=== PATIENT | female | born 1950 | race Caucasian/White ===

== ENCOUNTER 2016-10-13 04:58 | Inpatient (IN) | payer BC, OTHER ==
[2016-10-13] VITALS (10 sets, daily range): BP systolic 105–161; BP diastolic 70–100; PULSE 63–103; TEMP 36.3–37.3; O2SAT 91–100; Ht 170.2 cm; Wt 69.1 kg
[~2016-10-13] VITALS: Ht 170.2 cm; Wt 69.1 kg
[~2016-10-13 04:58] MED LIST: CHLO1TAB15 PO; CLB/200 PO; LAMO100T16 PO; LEVO100T PO; LISI20TA3 PO; METO-217 PO; MONT1TAB3 PO; QUET-206 PO; SERT-234 PO; TOPI50TA16 PO; TRAZ100T29 PO; VALA500T39 PO
--- NOTE | 2016-10-13 05:10 | EMERGENCY ROOM VISIT NOTE ---
History Report prepared by Tina: George Ryan Under the Supervision of: Dr. Robert Garcias M.D. First contact with patient: 05:00 Chief Complaint: WEAKNESS Stated Complaint: WEAKNESS/COLD SYMPTOMS History of Present Illness The patient is a 66 year old female who presents to the Emergency Room with complaints of weakness that began two days ago. At this time, she began experiencing cold symptoms. She has a cough with a fever as well. She is coughing up yellow sputum. The weakness then began. She denies any nausea, vomiting, or recent falls. She has a history of a stroke with left sided weakness. She is not on oxygen at home. Her oxygen saturation was 91% on room air. She denies any history of pneumonia. She tool Tylenol last night. Source of History: patient Onset: two days ago Position: other (global) Symptom Intensity: moderate Quality: other (weakness) Timing: constant Associated Symptoms: + cough, + fevers, No nausea, No vomiting Review of Systems See HPI for pertinent positives & negatives. A total of 10 systems reviewed and were otherwise negative. Past Medical & Surgical Medical Problems: (1) Hypercholesteremia (2) Hypertension Family History Hypertension Social History Smoking Status: Never Smoker Marital Status: Housing Status: lives with significant other Occupation Status: retired Current/Historical Medications Scheduled Celecoxib (CeleBREX), 1 CAP PO QAM Chlorpromazine Hcl (Thorazine), 50 MG PO TID Chlorpromazine Hcl (Thorazine), 75 MG PO TID Lamotrigine (Lamictal), 125 MG PO QAM Levothyroxine Sodium (Synthroid), 1 TAB PO QAM Lisinopril (Prinivil), 1 TAB PO QAM Metoprolol Succinate (Toprol Xl), 50 MG PO HS Montelukast Sodium (Singulair), 1 TAB PO HS Quetiapine Fumarate (Seroquel), 400 MG PO HS Sertraline (Zoloft), 1 TAB PO QAM Topiramate (Topamax), 75 MG PO BID Trazodone Hcl (Trazodone), 100 MG PO QAM Valacyclovir Hcl (Valtrex), 1 TAB PO QAM Allergies Coded Allergies: Clonazepam (Unverified Allergy, Unknown, ., 04/30/15) Erythromycin (Unverified Allergy, Unknown, UNK, 04/30/15) Risperidone (Unverified Allergy, Unknown, UNK, 04/30/15) Physical Exam Vital Signs Date Time Temp Pulse Resp B/P Pulse Ox O2 Delivery O2 Flow Rate FiO2 10/13/16 07:02 106 22 100/66 94 Room Air 10/13/16 06:48 105 20 103/61 96 Nasal Cannula 2.0 10/13/16 05:58 109 10/13/16 05:43 110 22 129/66 93 Nasal Cannula 2.0 10/13/16 05:09 91 Room Air 10/13/16 05:09 37.7 117 24 133/90 91 Room Air 10/13/16 05:05 117 Physical Exam GENERAL: Patient is chronically unwell appearing and in moderate acute distress. HEENT: No acute trauma, normocephalic atraumatic, mucous membranes moist, no nasal congestion, no scleral icterus. NECK: No stridor, no adenopathy, no meningismus, trachea is midline. LUNGS: No dyspnea. Junky productive cough. Crackles and decreased breath sounds bilaterally. HEART: Regular rate and rhythm. No murmurs, rubs, gallops appreciated. ABDOMEN: Soft, nontender, bowel sounds positive, no masses appreciated, no peritonitis. BACK: No midline tenderness, no CVA tenderness EXTREMITIES: Normal motion all extremities, no cyanosis, no edema. NEUROLOGIC: Alert and oriented, no acute motor or sensory deficits, no focal weakness, cranial nerves grossly intact. Decreased use of left arm and leg secondary to stroke. SKIN: No rash, no jaundice, no diaphoresis. Medical Decision & Procedures ER Provider Diagnostic Interpretation: X ray results are stated below per my interpretation and the radiologist's interpretation. CHEST X-RAY 1 VIEW: Hypoinflated lungs. Developing left lower lobe infiltrate with pleural effusion on the left which is new. Per me. Laboratory Results 10/13/16 04:48 Red Blood Count 4.61, Mean Corpuscular Volume 86.1, Mean Corpuscular Hemoglobin 28.6, Mean Corpuscular Hemoglobin Concent 33.2, Mean Platelet Volume 9.7, Neutrophils (%) (Auto) 78.6, Lymphocytes (%) (Auto) 9.4, Monocytes (%) (Auto) 11.5, Eosinophils (%) (Auto) 0.1, Basophils (%) (Auto) 0.2, Neutrophils # (Auto ) 6.74, Lymphocytes # (Auto) 0.81, Monocytes # (Auto) 0.99, Eosinophils # (Auto ) 0.01, Basophils # (Auto) 0.02 10/13/16 04:48 Test 10/13/16 04:48 10/13/16 05:27 10/13/16 05:40 White Blood Count 8.59 K/uL (4.8-10.8) Red Blood Count 4.61 M/uL (4.2-5.4) Hemoglobin 13.2 g/dL (12.0-16.0) Hematocrit 39.7 % (37-47) Mean Corpuscular Volume 86.1 fL (80-100) Mean Corpuscular Hemoglobin 28.6 pg (25-34) Mean Corpuscular Hemoglobin Concent 33.2 g/dl (32-36) Platelet Count 198 K/uL (130-400) Mean Platelet Volume 9.7 fL (7.4-10.4) Neutrophils (%) (Auto) 78.6 % Lymphocytes (%) (Auto) 9.4 % Monocytes (%) (Auto) 11.5 % Eosinophils (%) (Auto) 0.1 % Basophils (%) (Auto) 0.2 % Neutrophils # (Auto) 6.74 K/uL (1.4-6.5) Lymphocytes # (Auto) 0.81 K/uL (1.2-3.4) Monocytes # (Auto) 0.99 K/uL (0.11-0.59) Eosinophils # (Auto) 0.01 K/uL (0-0.5) Basophils # (Auto) 0.02 K/uL (0-0.2) RDW Standard Deviation 47.8 fL (36.4-46.3) RDW Coefficient of Variation 15.2 % (11.5-14.5) Immature Granulocyte % (Auto) 0.2 % Immature Granulocyte # (Auto) 0.02 K/uL (0.00-0.02) Dohle Bodies 1+ Prothrombin Time 10.5 SECONDS (9.0-12.0) Prothromb Time International Ratio 1.0 (0.9-1.1) Anion Gap 6.0 mmol/L (3-11) Est Creatinine Clear Calc Drug Dose 65.6 ml/min Estimated GFR () 87.1 Estimated GFR (Non- 75.2 BUN/Creatinine Ratio 10.9 (10-20) Calcium Level 8.4 mg/dl (8.5-10.1) Magnesium Level 1.8 mg/dl (1.8-2.4) Total Bilirubin 0.6 mg/dl (0.2-1) Direct Bilirubin 0.2 mg/dl (0-0.2) Aspartate Amino Transf (AST/SGOT) 30 U/L (15-37) Alanine Aminotransferase (ALT/SGPT) 52 U/L (12-78) Alkaline Phosphatase 135 U/L (45-117) Total Creatine Kinase 53 U/L (26-192) Creatine Kinase MB 0.7 ng/ml (0.5-3.6) Creatine Kinase MB Ratio 1.3 (0-3.0) Troponin I < 0.015 ng/ml (0-0.045) Total Protein 7.3 gm/dl (6.4-8.2) Albumin 3.1 gm/dl (3.4-5.0) Bedside Lactic Acid Venous 1.06 mmol/L (0.90-1.70) Urine Color YELLOW Urine Appearance CLEAR (CLEAR) Urine pH 6.0 (4.5-7.5) Urine Specific [place] 1.025 (1.000-1.030) Urine Protein 1+ (NEG) Urine Glucose (UA) NEG (NEG) Urine Ketones NEG (NEG) Urine Occult Blood 2+ (NEG) Urine Nitrite NEG (NEG) Urine Bilirubin NEG (NEG) Urine Urobilinogen NEG (NEG) Urine Leukocyte Esterase NEG (NEG) Urine RBC 0-4 /hpf (0-4) Urine WBC 1-5 /hpf (0-5) Urine Epithelial Cells 0-5 /lpf (0-5) Urine Bacteria NEG (NEG) Laboratory results as reviewed by me. Medications Administered Medications (Trade) Dose Ordered Sig/Natali Route Start Time Stop Time Status Last Admin Dose Admin Sodium Chloride (Nss 1000ml) 1,000 ml @ 999 mls/hr Q1H1M STAT IV 10/13/16 05:15 10/13/16 06:15 DC 10/13/16 05:49 999 MLS/HR Acetaminophen (Tylenol Tab) 1,000 mg NOW STAT PO 10/13/16 05:15 10/13/16 05:16 DC 10/13/16 05:49 1,000 MG Levofloxacin (Levaquin / D5W) 750 mg NOW STAT IV 10/13/16 06:25 10/13/16 06:26 DC 10/13/16 06:30 750 MG Dexamethasone Sodium Phosphate (Decadron Inj) 10 mg NOW ONCE IV 10/13/16 06:30 10/13/16 06:31 DC 10/13/16 06:30 10 MG Albuterol/ Ipratropium (Duoneb) 3 ml NOW STAT INH 10/13/16 06:25 10/13/16 06:26 DC 10/13/16 06:30 3 ML ECG Indication: weakness Rate (beats per minute): 116 Rhythm: sinus tachycardia Findings: PVC, no acute ischemic change ED Course 0500: The patient was evaluated in room B7. A complete history and physical exam was performed. 0515: Ordered Tylenol Tab 1000 PO, Sodium Chloride 1000 ml @ 999 mls/hr IV 0625: Ordered DuoNeb 3 ml INH, Levofloxacin 750 mg IV 0626: Upon reevaluation, the patient is resting. Discussed results and treatment plan with the patient. She verbalized understanding and agreement with the treatment plan. The patient will be evaluated by Dr. Ralph MORALES, for further management. 0630: Ordered Decadron Inj 10 mg IV Medical Decision Differential: Infectious, Reactive Airway Disease, Pneumonia, Pneumothorax, COPD , CHF, ACS, Pulmonary Embolism, MSK, GI, Dissection, amongst other etiologies entertained. 66 yr old febrile/hypoxic female with history of left sided paralysis s/p stroke arrives for evaluation of productive cough and fatigue. Unable to ambulate due to weakness and requiring NC O2 to keep oxygenated. CXR with LLL infiltrate and effusion which is new. Levaquin for coverage. She is not septic shock. BP and Lactic acid OK. Labs otherwise looking OK. She is too ill to go home. Will bring in to hospitalist for further evaluation/treatment. Consults Time Called: [phone] Consulting Physician: Dr. Ralph MORALES Returned Call: [phone] He will be evaluating the patient for further management. Impression Primary Impression: Pneumonia Additional Impressions: Hypoxia Generalized weakness Pleural effusion on left Scribe Attestation The scribe's documentation has been prepared under my direction and personally reviewed by me in its entirety. I confirm that the note above accurately reflects all work, treatment, procedures, and medical decision making performed by me. Departure Information Dispostion Being Evaluated By Hospitalist Referrals [facility] (PCP) Patient Instructions My [facility] Health Problem Qualifiers Primary Impression: Pneumonia Pneumonia type: due to unspecified organism Laterality: left Lung location : lower lobe of lung Qualified Codes: J18.1 - Lobar pneumonia, unspecified organism
[2016-10-13] MEDS ORDERED: SODIUM CHLORIDE 0.9% 1000ML 1,000 ML IV STA (05:15)
[2016-10-13] MEDS ORDERED: ACETAMINOPHEN 500 MG TAB PO STA (05:15)
[2016-10-13 05:39] LABS: HEMATOCRIT 39.7 % (37-47); MEAN CELL VOLUME 86.1 fL (80-100); MEAN CORPUSCULAR HEMOGLOBIN 28.6 pg (25-34); MEAN CORPUSCULAR HGB CONC 33.2 g/dl (32-36); MEAN PLATELET VOLUME 9.7 fL (7.4-10.4); PLATELET COUNT 198 K/uL (130-400); RED BLOOD COUNT 4.61 M/uL (4.2-5.4); WHITE BLOOD COUNT 8.59 K/uL (4.8-10.8)
[2016-10-13 05:49] LABS: PROTHROMBIN TIME (PATIENT) 10.5 SECONDS (9.0-12.0)
[2016-10-13 05:55] LABS: ALT/SGPT 52 U/L (12-78); AST/SGOT 30 U/L (15-37); BLOOD UREA NITROGEN 9 mg/dl (7-18); BUN/CREATININE RATIO 10.9 (10-20); CALCIUM 8.4 mg/dl (8.5-10.1); CARBON DIOXIDE 31 mmol/L (21-32); CHLORIDE 101 mmol/L (98-107); CREATININE 0.81 mg/dl (0.60-1.20); GLUCOSE 119 mg/dl (70-99); MAGNESIUM 1.8 mg/dl (1.8-2.4); POTASSIUM 3.8 mmol/L (3.5-5.1); SODIUM 138 mmol/L (136-145)
[2016-10-13 05:59] LABS: BASO % 0.2 %; BASO ABS # 0.02 K/uL (0-0.2); COMPLETE YES; DOHLE BODIES 1+; EOS % 0.1 %; IG% 0.2 %; LYMPH % 9.4 %; LYMPH ABS # 0.81 K/uL (1.2-3.4); MONO % 11.5 %; NEUT % 78.6 %
[2016-10-13 06:01] LABS: ALKALINE PHOSPHATASE 135 U/L (45-117); CKMB/CK RATIO 1.3 (0-3.0)
[2016-10-13 06:04] LABS: MANUAL MICROSCOPIC REQUIRED? YES; URINE APPEARANCE CLEAR (CLEAR); URINE BILIRUBIN NEG (NEG); URINE COLOR YELLOW; URINE NITRITE NEG (NEG); URINE SPECIFIC GRAVITY 1.025 (1.000-1.030); UROBILINOGEN NEG (NEG)
[2016-10-13 06:05] LABS: REVIEW REQ? NO
[2016-10-13] MEDS ORDERED: LEVAQUIN 750MG / 150ML D5W IV STA (06:25)
[2016-10-13] MEDS ORDERED: ALBUT/IPRATROP 3MG/0.5MG NEB 3 ML VIAL INH STA (06:25)
[2016-10-13 06:28] LABS: URINE BACTERIA NEG (NEG); URINE RBC 0-4 /hpf (0-4)
[2016-10-13 06:29] LABS: ZZURINE CULT IF INDIC CATH NO
[2016-10-13] MEDS ORDERED: DEXAMETHASONE SOD INJ 10 MG/ML VIAL IV ONE (06:30)
[2016-10-13] MEDS ORDERED: CLON0.5T3 PO (07:14)
[2016-10-13] MEDS ORDERED: VALA500T60 PO (07:15)
[2016-10-13] MEDS ORDERED: CLOP1TAB15 PO (07:16)
[2016-10-13] MEDS ORDERED: ATOR-22 PO (07:16)
[2016-10-13] MEDS ORDERED: METO25TA3 PO (07:16)
[2016-10-13] MEDS ORDERED: CYM/30 PO (07:18)
[2016-10-13] MEDS ORDERED: DULO60CA44 PO (07:18)
[2016-10-13] MEDS ORDERED: BREX1TAB3 PO (07:19)
[2016-10-13] MEDS ORDERED: RANI150T3 PO (07:19)
[2016-10-13] MEDS ORDERED: QUET200T2 PO (07:19)
[2016-10-13] MEDS ORDERED: TRAZ100T29 PO (07:19)
[2016-10-13] MEDS ORDERED: DOCU100C31 PO (07:20)
[2016-10-13] MEDS ORDERED: LORA-741 PO (07:20)
[2016-10-13] MEDS ORDERED: OXYC1TAB3 PO (07:21)
[2016-10-13] MEDS ORDERED: CYCL5TAB PO (07:21)
--- NOTE | 2016-10-13 07:41 | DIAGNOSTIC IMAGING REPORT ---
SINGLE VIEW CHEST CLINICAL HISTORY: Fever. FINDINGS: An AP, portable, upright chest radiograph is compared to study dated 04/30/2015. The examination is degraded by portable technique and patient rotation. The cardiomediastinal silhouette is unremarkable. There is airspace consolidation at the left lung base with a small left pleural effusion. Mild right perihilar opacities are observed. No pneumothorax is seen. The skeletal structures are osteopenic. The bony thorax is grossly intact. IMPRESSION: 1. There is patchy airspace consolidation at the left lung base with a small left pleural effusion. The appearance is typical for pneumonia. Radiographic follow-up to resolution is recommended. 2. There are right perihilar airspace opacities which also likely represent an infectious/inflammatory pneumonitis. Electronically signed by: Sy Steve M.D. 10/13/2016 7:39 AM Dictated Date/Time: 10/13/2016 7:38 AM
[2016-10-13] MEDS ORDERED: IPRATROPIUM BROMIDE NEB SOLN 0.02% 2.5 ML VIAL INH PRN (08:15)
[2016-10-13] MEDS ORDERED: DOCUSATE SODIUM 100 MG CAP PO PRN (08:15)
[2016-10-13] MEDS ORDERED: ALUMINUM/MAGNESIUM/SIMETH (MAALOX MAX) 30 ML UDC PO PRN (08:15)
[2016-10-13] MEDS ORDERED: ACETAMINOPHEN 325 MG TAB PO PRN (08:15)
[2016-10-13] MEDS ORDERED: CYCLOBENZAPRINE HCL 10 MG TAB PO PRN (08:15)
[2016-10-13] MEDS ORDERED: LEVALBUTEROL 1.25MG/0.5ML NEB INH PRN (08:15)
[2016-10-13] MEDS ORDERED: OXYCODONE HCL IR 5 MG TAB (IMMEDIATE RELEASE) PO PRN (08:15)
[2016-10-13] MEDS ORDERED: ONDANSETRON INJ 2 MG/ML 2 ML VIAL IV PRN (08:15)
[2016-10-13] MEDS ORDERED: POLYETHYLENE (MIRALAX) 17 GM PACK PO PRN (08:15)
--- NOTE | 2016-10-13 08:49 | History and Physical ---
History & Physical Date & Time of Service: October 13, 2016 at 08:38 Chief Complaint: Weakness/Cold Symptoms Primary Care Physician: Penelope Montano D.O. History of Present Illness Source: patient, spouse Ms. Abernathy is a 66 y/o female with PMHx of CVA with L Residual Deficits ( February 2016), HLD, HTN, Chronic PVCs, COPD?, and Bipolar Disorder who presents to the ED c/o generalized weakness and cold-like symptoms x 2 days. She reports her symptoms started as rhinorrhea and a sore throat that have resolved. Reports a productive cough of yellow sputum but is beginning to become less productive at this point. She gradually developed generalized weakness. She normally ambulates with a cane but her reports he has to help her move more over the past couple of days. She does have L residual deficits from her CVA. She reports that she has a baseline essential tremor but feels that it has increased over the passed couple of days. She feels like she was running a fever but did not document any fevers at home. Reports chronic urinary retention causing her to strain to urinate since her CVA. Also notes chronic constipation. She states she thinks she has a H/O COPD but then states she mostly just has allergies. She utilizes Singulair but does not have nebulizers or inhalers at home. She denies CP, SOB, N/V, abdominal pain, dysuria, diarrhea , melena/hematochezia. In the ED, she has a low-grade fever and mild tachycardia. Lactic acid is unremarkable and she is without leukocytosis. CXR reveals patchy airspace consolidation in L lung base and small L pleural effusion. EKG reveals sinus tachycardia with frequent PVCs without ischemic changes. She received IVF, Decadron, and Levaquin. She will be admitted to telemetry for SIRS from community-acquired pneumonia. Past Medical/Surgical History Medical Problems: (1) Hypercholesteremia Status: Chronic (2) Hypertension Status: Chronic Family History Heart Disease MOTHER BROTHER Hypertension Social History Smoking Status: Never Smoker Smokeless Tobacco Use: No Alcohol Use: none Drug Use: none Marital Status: Occupational Status: retired Multi-Drug Resistant Organisms History of MDRO: No Allergies Coded Allergies: Clonazepam (Unverified Allergy, Unknown, ., 04/30/15) Erythromycin (Unverified Allergy, Unknown, UNK, 04/30/15) Risperidone (Unverified Allergy, Unknown, UNK, 04/30/15) Home Medications Scheduled Atorvastatin (Lipitor), 20 MG PO HS Brexpiprazole (Rexulti), 1 MG PO QAM Clonazepam (Klonopin), 0.5 MG PO HS Clopidogrel (Plavix), 75 MG PO QAM Duloxetine HCl (Cymbalta), 30 MG PO HS Duloxetine Hcl (Cymbalta), 60 MG PO QAM Levothyroxine Sodium (Synthroid), 1 TAB PO QAM Metoprolol Succ (Toprol Xl) (Toprol-Xl), 25 MG PO DAILY Montelukast Sodium (Singulair), 1 TAB PO HS Quetiapine Fumarate Xr (Seroquel Xr), 400 MG PO DAILY Ranitidine Hcl (Zantac), 150 MG PO HS Trazodone Hcl (Trazodone), 150 MG PO HS Valacyclovir (Valtrex), 500 MG PO QAM Scheduled PRN Cyclobenzaprine Hcl (Flexeril), 5 MG PO UD PRN for Muscle Spasms Docusate Sodium (Docusate Sodium), 100 MG PO BID PRN for Constipation Lorazepam (Ativan), 0.5 MG PO UD PRN for Anxiety Oxycodone Ir (Roxicodone Ir), 5 MG PO UD PRN for Pain Review of Systems Constitutional: + chills, + fatigue, + fever, + weakness (generalized) Eyes: No worsening of vision ENT: + nasal symptoms (initially - resolved), + sore throat (initially - resolved), No trouble swallowing Respiratory: + cough, + sputum (yellow), No shortness of breath, No wheezing Cardiovascular: No chest pain, No palpitations Abdomen: + constipation (chronic), No GI bleeding, No diarrhea, No nausea, No pain, No vomiting Musculoskeletal: No calf pain, No swelling Genitourinary - Female: + urinary retention (chronic), No dysuria Neurologic: + weakness (L sided residual weakness 2/2 CVA) Psychiatric: + problem reported (H/O Bipolar Disorder) Hematologic / Lymphatic: No abnormal bleeding/bruising, No clotting problems Integumentary: No rash Allergic / Immunologic: + seasonal allergies Physical Exam Vital Signs Date Time Temp Pulse Resp B/P Pulse Ox O2 Delivery O2 Flow Rate FiO2 5/23/17 07:54 101 21 111/69 93 Room Air 2.0 10/13/16 07:02 106 22 100/66 94 Room Air 10/13/16 06:48 105 20 103/61 96 Nasal Cannula 2.0 10/13/16 05:58 109 10/13/16 05:43 110 22 129/66 93 Nasal Cannula 2.0 10/13/16 05:09 91 Room Air 10/13/16 05:09 37.7 117 24 133/90 91 Room Air 10/13/16 05:05 117 General Appearance: WD/WN, no apparent distress, + pertinent finding (flat affect/mask-like face) Head: normocephalic, atraumatic Eyes: sclerae normal ENT: hearing grossly normal Neck: supple, no JVD, trachea midline Respiratory/Chest: no respiratory distress, no accessory muscle use, + pertinent finding (course breath sounds with intermittent exp. wheezing) Cardiovascular: no gallop, no murmur, + tachycardia, + pertinent finding ( heard to appreciate heart tones 2/2 course breath sounds) Abdomen/GI: normal bowel sounds, non tender, soft Extremities/Musculoskelatal: no calf tenderness, no pedal edema Neurologic/Psych: alert, oriented x 3, + pertinent finding (minimal to no strength of LLE to dorsiflexion/plantarflexion; RUE 3-4/5 to hand raw stock machine feeder, flexion/ extension) Skin: normal color, warm/dry Diagnostics Laboratory Results Results Past 24 Hours Test 10/13/16 04:48 10/13/16 05:27 10/13/16 05:40 Range/Units White Blood Count 8.59 4.8-10.8 K/uL Red Blood Count 4.61 4.2-5.4 M/uL Hemoglobin 13.2 12.0-16.0 g/dL Hematocrit 39.7 37-47 % Mean Corpuscular Volume 86.1 80-100 fL Mean Corpuscular Hemoglobin 28.6 25-34 pg Mean Corpuscular Hemoglobin Concent 33.2 32-36 g/dl Platelet Count 198 130-400 K/uL Mean Platelet Volume 9.7 7.4-10.4 fL Neutrophils (%) (Auto) 78.6 % Lymphocytes (%) (Auto) 9.4 % Monocytes (%) (Auto) 11.5 % Eosinophils (%) (Auto) 0.1 % Basophils (%) (Auto) 0.2 % Neutrophils # (Auto) 6.74 1.4-6.5 K/uL Lymphocytes # (Auto) 0.81 1.2-3.4 K/uL Monocytes # (Auto) 0.99 0.11-0.59 K/uL Eosinophils # (Auto) 0.01 0-0.5 K/uL Basophils # (Auto) 0.02 0-0.2 K/uL RDW Standard Deviation 47.8 36.4-46.3 fL RDW Coefficient of Variation 15.2 11.5-14.5 % Immature Granulocyte % (Auto) 0.2 % Immature Granulocyte # (Auto) 0.02 0.00-0.02 K/uL Dohle Bodies 1+ Prothrombin Time 10.5 9.0-12.0 SECONDS Prothromb Time International Ratio 1.0 0.9-1.1 Sodium Level 138 136-145 mmol/L Potassium Level 3.8 3.5-5.1 mmol/L Chloride Level 101 98-107 mmol/L Carbon Dioxide Level 31 21-32 mmol/L Anion Gap 6.0 3-11 mmol/L Blood Urea Nitrogen 9 7-18 mg/dl Creatinine 0.81 0.60-1.20 mg/dl Est Creatinine Clear Calc Drug Dose 65.6 ml/min Estimated GFR () 87.1 Estimated GFR (Non- 75.2 BUN/Creatinine Ratio 10.9 10-20 Random Glucose 119 70-99 mg/dl Calcium Level 8.4 8.5-10.1 mg/dl Magnesium Level 1.8 1.8-2.4 mg/dl Total Bilirubin 0.6 0.2-1 mg/dl Direct Bilirubin 0.2 0-0.2 mg/dl Aspartate Amino Transf (AST/SGOT) 30 15-37 U/L Alanine Aminotransferase (ALT/SGPT) 52 12-78 U/L Alkaline Phosphatase 135 45-117 U/L Total Creatine Kinase 53 26-192 U/L Creatine Kinase MB 0.7 0.5-3.6 ng/ml Creatine Kinase MB Ratio 1.3 0-3.0 Troponin I < 0.015 0-0.045 ng/ml Total Protein 7.3 6.4-8.2 gm/dl Albumin 3.1 3.4-5.0 gm/dl Bedside Lactic Acid Venous 1.06 0.90-1.70 mmol/L Urine Color YELLOW Urine Appearance CLEAR CLEAR Urine pH 6.0 4.5-7.5 Urine Specific [place] 1.025 1.000-1.030 Urine Protein 1+ NEG Urine Glucose (UA) NEG NEG Urine Ketones NEG NEG Urine Occult Blood 2+ NEG Urine Nitrite NEG NEG Urine Bilirubin NEG NEG Urine Urobilinogen NEG NEG Urine Leukocyte Esterase NEG NEG Urine RBC 0-4 0-4 /hpf Urine WBC 1-5 0-5 /hpf Urine Epithelial Cells 0-5 0-5 /lpf Urine Bacteria NEG NEG Microbiology Results 10/13/16 Blood Culture, Received Pending 10/13/16 Blood Culture, Received Pending Diagnostic Radiology SINGLE VIEW CHEST FINDINGS: An AP, portable, upright chest radiograph is compared to study dated 04/30/2015. The examination is degraded by portable technique and patient rotation. The cardiomediastinal silhouette is unremarkable. There is airspace consolidation at the left lung base with a small left pleural effusion. Mild right perihilar opacities are observed. No pneumothorax is seen. The skeletal structures are osteopenic. The bony thorax is grossly intact. IMPRESSION: 1. There is patchy airspace consolidation at the left lung base with a small left pleural effusion. The appearance is typical for pneumonia. Radiographic follow-up to resolution is recommended. 2. There are right perihilar airspace opacities which also likely represent an infectious/inflammatory pneumonitis. EKG Poor data quality, interpretation may be adversely affected Sinus tachycardia with frequent , and consecutive Premature ventricular complexes Abnormal ECG When compared with ECG of 30-APR-2015 14:30, Vent. rate has increased BY 38 BPM Criteria for Septal infarct are no longer Present T wave amplitude has decreased in Inferior leads Nonspecific T wave abnormality, worse in Lateral leads Impression Assessment and Plan Ms. Abernathy is a 66 y/o female with PMHx of CVA with L Residual Deficits ( February 2016), HLD, HTN, Chronic PVCs, COPD?, and Bipolar Disorder who presents to the ED c/o generalized weakness and cold-like symptoms x 2 days. CXR reveals patchy airspace consolidation of L lung base and small pleural effusion SIRS from Community Acquired Pneumonia: - Levaquin 750 mg IV daily - Gentle hydration with NSS at 80 mL/hr - Xopenex and Atrovent nebs JANY and PRN - Prednisone 40 mg BID H/O Frequent PVCs: - Metoprolol 25 mg daily COPD/Allergies: - Patient reports COPD but then stated its mostly allergies - Singulair 10 mg daily H/O CVA with L Residual Deficits: - Per patient and she has not taken for Lipitor x "months" -- Initially on 80 mg daily but reduced to 20 mg due to myalgias and has since stopped taking it - Plavix 75 mg daily - Flexeril 5 mg daily PRN and Oxycodone 5 mg Q6H PRN Hypothyroidism: - Synthroid 100 mcg daily Bipolar Disorder: - Cymbalta 60 mg daily and 30 mg HS - Seroquel XR 400 mg daily - Clonazepam 0.5 mg HS - on allergy list however patient and confirm daily use - Trazadone 150 mg HS Constipation: - Colace 100 mg BID PRN DVT Prophylaxis: Lovenox 40 mg SC daily Code Status: FULL RESUSCITATION Disposition: - Monitor on telemetry throughout the day due to frequent PVCs - if stable can go to Med floor tomorrow - PT/OT evaluations - lives at home with and utilizes a cane; no recent falls; only has approx 3 steps to enter home Level of Care Telemetry Resuscitation Status FULL RESUSCITATION VTE Prophylaxis VTE Risk Assessment Done? Y/N: Yes Risk Level: Moderate Given or contraindicated: Enoxaparin (Lovenox)SQ, T.E.D. Stockings, SCD's
[2016-10-13] MEDS: SODIUM CHLORIDE 0.9% 1000ML 1,000 ML IV SCH ×2 (10:53→22:38)
[2016-10-13] MEDS: IPRATROPIUM BROMIDE NEB SOLN 0.02% 2.5 ML VIAL INH SCH ×2 (14:21→19:14)
[2016-10-13] MEDS: LEVALBUTEROL 1.25MG/0.5ML NEB INH SCH ×2 (14:21→19:14)
[2016-10-13] MEDS: ENOXAPARIN 40 MG/0.4 ML SYR SC SCH (16:45)
[2016-10-13] MEDS: GUAIFENESIN SUGAR FREE 100 MG/5 ML UDC PO SCH ×2 (18:03→23:34)
[2016-10-13] MEDS: DULOXETINE (CYMBALTA) 30 MG CAP PO SCH (20:14)
[2016-10-13] MEDS: TRAZODONE HCL 100 MG TAB PO SCH (20:14)
[2016-10-13] MEDS: RANITIDINE HCL 150 MG TAB PO SCH (20:15)
[2016-10-13] MEDS: MONTELUKAST SOD 10 MG TAB PO SCH (20:15)
[2016-10-13] MEDS: CLONAZEPAM 0.5 MG TAB PO SCH (20:45)
[2016-10-13] MEDS ORDERED: ATORVASTATIN 20 MG TAB PO SCH (21:00)
[2016-10-14] VITALS (12 sets, daily range): BP systolic 140–158; BP diastolic 82–96; PULSE 87–120; TEMP 36.3–37.1; O2SAT 90–97
[2016-10-14] MEDS: IPRATROPIUM BROMIDE NEB SOLN 0.02% 2.5 ML VIAL INH SCH ×4 (02:23→19:50)
[2016-10-14] MEDS: LEVALBUTEROL 1.25MG/0.5ML NEB INH SCH ×4 (02:23→19:50)
[2016-10-14 05:46] LABS: HEMATOCRIT 36.3 % (37-47); MEAN CELL VOLUME 85.4 fL (80-100); MEAN CORPUSCULAR HEMOGLOBIN 27.8 pg (25-34); MEAN CORPUSCULAR HGB CONC 32.5 g/dl (32-36); MEAN PLATELET VOLUME 9.2 fL (7.4-10.4); PLATELET COUNT 185 K/uL (130-400); RED BLOOD COUNT 4.25 M/uL (4.2-5.4)
[2016-10-14] MEDS: LEVOTHYROXINE 100 MCG TAB PO SCH (06:12)
[2016-10-14] MEDS: GUAIFENESIN SUGAR FREE 100 MG/5 ML UDC PO SCH ×4 (06:12→23:56)
[2016-10-14 06:21] LABS: BUN/CREATININE RATIO 15.5 (10-20); CALCIUM 8.3 mg/dl (8.5-10.1); CREATININE 0.66 mg/dl (0.60-1.20); MAGNESIUM 2.1 mg/dl (1.8-2.4); POTASSIUM 3.7 mmol/L (3.5-5.1)
[2016-10-14] MEDS ORDERED: LEVOFLOXACIN / D5W 750 MG in PREMIXED IN D5W 150 ML IV SCH (08:00)
[2016-10-14] MEDS: QUETIAPINE FUMARATE 200 MG TABCR PO SCH (08:55)
[2016-10-14] MEDS: CLOPIDOGREL BISULFATE 75 MG TAB PO SCH (08:55)
[2016-10-14] MEDS: DULOXETINE HCL 60 MG CAP PO SCH (08:55)
[2016-10-14] MEDS: METOPROLOL SUCC 25MG EXT REL TAB PO SCH (08:56)
--- NOTE | 2016-10-14 09:47 | Hospitalist Progress Note ---
Hospitalist Progress Note Date of Service October 14, 2016. Subjective Pt evaluation today including: conversation w/ patient, physical exam, chart review, lab review, review of inpatient medication list Patient seen and evaluated. No acute events overnight. Better rate control but continues to have frequent PVCs. Patient appears more energetic today compared to admission and strength improved. Continues to have a weak cough with difficulty moving secretions. Does feel that the cough is improving. Continues to have a poor appetite but feels she is eating a bit more. Constitutional: + fatigue, + weakness (generalized - improving), No chills, No fever Eyes: No worsening of vision ENT: No sore throat, No trouble swallowing Respiratory: + cough, + sputum, No shortness of breath Cardiovascular: No chest pain, No palpitations Abdomen: No GI bleeding, No constipation, No diarrhea, No nausea, No pain, No vomiting Musculoskeletal: No calf pain, No swelling Female : No dysuria Neurologic: + weakness (L sided (nearing baseline)) Skin: No rash Medications Current Inpatient Medications Medications (Trade) Dose Ordered Sig/Natali Route Start Time Stop Time Status Last Admin Dose Admin Enoxaparin Sodium 40 mg 40 mg Q24H SC 10/13/16 16:00 11/12/16 15:59 10/13/16 16:45 40 MG Sodium Chloride (Nss 1000ml) 1,000 ml @ 80 mls/hr [id number] IV 10/13/16 10:00 11/12/16 09:59 10/13/16 22:38 80 MLS/HR Acetaminophen (Tylenol Tab) 650 mg Q4H PRN PO 10/13/16 08:15 11/12/16 08:14 Al Hydrox/Mg Hydrox/Simethicone (Maalox Max Susp) 15 ml Q4H PRN PO 10/13/16 08:15 11/12/16 08:14 Magnesium Hydroxide (Milk Of Magnesia Susp) 30 ml Q12H PRN PO 10/13/16 08:15 11/12/16 08:14 Ondansetron HCl (Zofran Inj) 4 mg Q6H PRN IV 10/13/16 08:15 11/12/16 08:14 Polyethylene 17 gm 17 gm DAILY PRN PO 10/13/16 08:15 11/12/16 08:14 Levofloxacin/Prmx (Levaquin / D5W/ Premixed D5W) 150 ml @ 100 mls/hr DAILY@0800 IV 10/14/16 08:00 10/21/16 07:59 10/14/16 08:56 100 MLS/HR Clopidogrel Bisulfate (plAVix TAB) 75 mg QAM PO 10/14/16 09:00 11/13/16 08:59 10/14/16 08:55 75 MG Cyclobenzaprine HCl (Flexeril Tab) 5 mg DAILY PRN PO 10/13/16 08:15 11/12/16 08:14 Docusate Sodium (coLACE CAP) 100 mg BID PRN PO 10/13/16 08:15 11/12/16 08:14 Duloxetine HCl (Cymbalta Cap) 30 mg HS PO 10/13/16 21:00 11/12/16 20:59 10/13/16 20:14 30 MG Duloxetine HCl (Cymbalta Cap) 60 mg QAM PO 10/14/16 09:00 11/13/16 08:59 10/14/16 08:55 60 MG Levothyroxine Sodium (Synthroid Tab) 100 mcg DAILYBB PO 10/14/16 06:30 11/13/16 06:29 10/14/16 06:12 100 MCG Metoprolol Succinate (Toprol Xl Tab) 25 mg DAILY PO 10/14/16 09:00 11/13/16 08:59 10/14/16 08:56 25 MG Montelukast Sodium (Singulair Tab) 10 mg HS PO 10/13/16 21:00 11/12/16 20:59 10/13/16 20:15 10 MG Oxycodone HCl (Roxicodone Immediate Rel Tab) 5 mg Q6H PRN PO 10/13/16 08:15 10/27/16 08:14 Quetiapine Fumarate (seroQUEL XR TAB) 400 mg DAILY PO 10/14/16 09:00 11/13/16 08:59 10/14/16 08:55 400 MG Ranitidine HCl (zANTac TAB) 150 mg HS PO 10/13/16 21:00 11/12/16 20:59 10/13/16 20:15 150 MG Trazodone HCl (Desyrel Tab) 150 mg HS PO 10/13/16 21:00 11/12/16 20:59 10/13/16 20:14 150 MG Valacyclovir HCl (Valtrex Tab) 500 mg QAM PO 10/14/16 09:00 10/24/16 08:59 10/14/16 08:55 500 MG Miscellaneous Information (Order Awaiting Action) 1 ea QS N/A 10/13/16 16:00 11/12/16 15:59 Ipratropium [place] (Atrovent 0.02% 0.5MG/2.5ML Neb) 0.5 mg Q6R INH 10/13/16 15:00 11/12/16 14:59 10/14/16 07:18 0.5 MG Levalbuterol (Xopenex 1.25MG/ 0.5ML Neb) 1.25 mg Q6R INH 10/13/16 15:00 11/12/16 14:59 10/14/16 07:18 1.25 MG Levalbuterol (Xopenex 1.25MG/ 0.5ML Neb) 1.25 mg Q2H PRN INH 10/13/16 08:15 11/12/16 08:14 Ipratropium [place] (Atrovent 0.02% 0.5MG/2.5ML Neb) 0.5 mg Q2H PRN INH 10/13/16 08:15 11/12/16 08:14 Prednisone (PredniSONE TAB) 40 mg BID PO 10/13/16 21:00 11/12/16 20:59 10/14/16 08:55 40 MG Guaifenesin (Robitussin Sugar Free Syrup) 100 mg Q6H PO 10/13/16 18:00 11/12/16 17:59 10/14/16 06:12 100 MG Clonazepam (Klonopin Tab) 0.5 mg HS PO 10/13/16 21:00 11/12/16 20:59 10/13/16 20:45 0.5 MG Objective Vital Signs Date Time Temp Pulse Resp B/P Pulse Ox O2 Delivery O2 Flow Rate FiO2 10/14/16 08:50 36.8 120 16 145/89 90 Room Air 10/14/16 07:24 36.3 93 16 140/87 97 Room Air 10/14/16 07:18 97 16 93 Room Air 10/14/16 04:00 Room Air 10/14/16 03:52 36.8 93 20 152/82 92 Room Air 10/14/16 02:23 87 16 95 Room Air 10/14/16 00:00 Room Air 10/13/16 23:52 37.0 63 18 161/100 100 Room Air 10/13/16 20:00 Room Air 10/13/16 20:00 92 Room Air 10/13/16 19:44 36.3 103 20 150/92 94 Room Air 10/13/16 19:14 89 16 95 Room Air 10/13/16 16:00 Room Air 10/13/16 15:08 36.5 98 16 123/77 92 Room Air 10/13/16 14:21 94 16 93 Room Air 10/13/16 12:00 Room Air 2.0 10/13/16 11:36 37.3 73 16 105/70 92 Room Air 10/13/16 10:03 91 Room Air 2.0 10/13/16 10:02 36.9 101 16 138/83 91 Room Air Physical Exam General Appearance: WD/WN, no apparent distress, + pertinent finding (flat affect/mask-like face (more expression today)) Eyes: sclerae normal ENT: hearing grossly normal, + pertinent finding (mucous membranes appear less dried today) Neck: supple, no JVD, trachea midline Respiratory/Chest: no respiratory distress, no accessory muscle use, + rhonchi (throughout/course) Cardiovascular: regular rate, rhythm, no gallop, no murmur Abdomen: normal bowel sounds, non tender, soft Extremities: no pedal edema, no calf tenderness Neurologic/Psychiatric: alert Skin: normal color, warm/dry Laboratory Results Last 24 Hours Test 10/14/16 05:36 White Blood Count 9.50 K/uL Red Blood Count 4.25 M/uL Hemoglobin 11.8 g/dL Hematocrit 36.3 % Mean Corpuscular Volume 85.4 fL Mean Corpuscular Hemoglobin 27.8 pg Mean Corpuscular Hemoglobin Concent 32.5 g/dl RDW Standard Deviation 47.2 fL RDW Coefficient of Variation 15.1 % Platelet Count 185 K/uL Mean Platelet Volume 9.2 fL Sodium Level 143 mmol/L Potassium Level 3.7 mmol/L Chloride Level 110 mmol/L Carbon Dioxide Level 26 mmol/L Anion Gap 7.0 mmol/L Blood Urea Nitrogen 10 mg/dl Creatinine 0.66 mg/dl Est Creatinine Clear Calc Drug Dose 80.5 ml/min Estimated GFR () 105.9 Estimated GFR (Non- 91.4 BUN/Creatinine Ratio 15.5 Random Glucose 125 mg/dl Calcium Level 8.3 mg/dl Magnesium Level 2.1 mg/dl Assessment and Plan Ms. Abernathy is a 66 y/o female with PMHx of CVA with L Residual Deficits ( February 2016), HLD, HTN, Chronic PVCs, COPD?, and Bipolar Disorder who presents to the ED c/o generalized weakness and cold-like symptoms x 2 days. CXR reveals patchy airspace consolidation of L lung base and small pleural effusion SIRS from Community Acquired Pneumonia: MILD IMPROVEMENT - Levaquin 750 mg IV daily - Gentle hydration with NSS at 80 mL/hr - Xopenex and Atrovent nebs NATALI and PRN - Guaifenesin 100 mg Q6H - Prednisone 40 mg po BID H/O Frequent PVCs: - Metoprolol 25 mg daily COPD/Allergies: - Patient reports COPD but then stated its mostly allergies - Singulair 10 mg daily H/O CVA with L Residual Deficits: - Per patient and she has not taken Lipitor x "months" -- Initially on 80 mg daily but reduced to 20 mg due to myalgias and has since stopped taking it - Plavix 75 mg daily - Flexeril 5 mg daily PRN and Oxycodone 5 mg Q6H PRN Hypothyroidism: - Synthroid 100 mcg daily Bipolar Disorder: - Cymbalta 60 mg daily and 30 mg HS - Seroquel XR 400 mg daily - Clonazepam 0.5 mg HS - on allergy list however patient and confirm daily use - Trazadone 150 mg HS Constipation: - Colace 100 mg BID PRN DVT Prophylaxis: Lovenox 40 mg SC daily Code Status: FULL RESUSCITATION Disposition: - Monitor on telemetry throughout the day due to frequent PVCs - does have better rate control but intermittently does have tachycardia - will monitor - PT/OT evaluations - lives at home with and utilizes a cane; no recent falls; only has approx 3 steps to enter home
[2016-10-14] MEDS: SODIUM CHLORIDE 0.9% 1000ML 1,000 ML IV SCH (13:54)
[2016-10-14] MEDS: ENOXAPARIN 40 MG/0.4 ML SYR SC SCH (15:52)
[2016-10-14] MEDS: DULOXETINE (CYMBALTA) 30 MG CAP PO SCH (20:48)
[2016-10-14] MEDS: RANITIDINE HCL 150 MG TAB PO SCH (20:49)
[2016-10-14] MEDS: CLONAZEPAM 0.5 MG TAB PO SCH (20:49)
[2016-10-14] MEDS: MONTELUKAST SOD 10 MG TAB PO SCH (20:49)
[2016-10-14] MEDS: TRAZODONE HCL 100 MG TAB PO SCH (20:50)
[2016-10-15] VITALS (11 sets, daily range): BP systolic 122–163; BP diastolic 71–90; PULSE 58–110; TEMP 36.2–36.9; O2SAT 92–97
[2016-10-15] MEDS: IPRATROPIUM BROMIDE NEB SOLN 0.02% 2.5 ML VIAL INH SCH ×4 (02:24→19:04)
[2016-10-15] MEDS: LEVALBUTEROL 1.25MG/0.5ML NEB INH SCH ×4 (02:25→19:04)
[2016-10-15] MEDS: LEVOTHYROXINE 100 MCG TAB PO SCH (05:50)
[2016-10-15] MEDS: GUAIFENESIN SUGAR FREE 100 MG/5 ML UDC PO SCH ×4 (05:50→23:42)
[2016-10-15 06:39] LABS: HEMATOCRIT 39.4 % (37-47); MEAN CELL VOLUME 86.4 fL (80-100); MEAN CORPUSCULAR HEMOGLOBIN 28.3 pg (25-34); MEAN CORPUSCULAR HGB CONC 32.7 g/dl (32-36); MEAN PLATELET VOLUME 10.1 fL (7.4-10.4); PLATELET COUNT 226 K/uL (130-400); RED BLOOD COUNT 4.56 M/uL (4.2-5.4); WHITE BLOOD COUNT 8.46 K/uL (4.8-10.8)
[2016-10-15 07:19] LABS: BUN/CREATININE RATIO 17.5 (10-20); CALCIUM 8.6 mg/dl (8.5-10.1); CREATININE 0.62 mg/dl (0.60-1.20); MAGNESIUM 2.3 mg/dl (1.8-2.4); POTASSIUM 3.9 mmol/L (3.5-5.1)
--- NOTE | 2016-10-15 09:23 | DIAGNOSTIC IMAGING REPORT ---
TWO VIEW CHEST CLINICAL HISTORY: Follow-up pneumonia. FINDINGS: PA and lateral chest radiographs are compared to study dated 10/13/2016. The PA view is degraded by patient rotation. The cardiomediastinal silhouette is unremarkable. Chronic interstitial thickening is unchanged. There is unchanged appearance of left basilar airspace consolidation with a trace left pleural effusion. The right lung appears clear. There is no pneumothorax. The skeletal structures are osteopenic. The bony thorax appears intact. IMPRESSION: Findings of left lower lobe pneumonia with a small left pleural effusion have not significantly changed from 10/13/2016. Electronically signed by: Sy Steve M.D. 10/15/2016 9:21 AM Dictated Date/Time: 10/15/2016 9:11 AM
[2016-10-15] MEDS: DULOXETINE HCL 60 MG CAP PO SCH (09:49)
[2016-10-15] MEDS: METOPROLOL SUCC 25MG EXT REL TAB PO SCH (09:50)
[2016-10-15] MEDS: QUETIAPINE FUMARATE 200 MG TABCR PO SCH (09:50)
[2016-10-15] MEDS: CLOPIDOGREL BISULFATE 75 MG TAB PO SCH (09:50)
[2016-10-15] MEDS ORDERED: LISINOPRIL 5 MG TAB PO ONE (10:45)
[2016-10-15] MEDS: LEVOFLOXACIN 750 MG TAB PO SCH (12:32)
--- NOTE | 2016-10-15 12:37 | Progress Note ---
Subjective Date of Service: October 15, 2016. Subjective Pt evaluation today including: conversation w/ patient, physical exam, chart review, lab review, review of studies, conversation w/ nutrition consultant, review of inpatient medication list Sitting up in chair, continue doing well, was doing physical setup Still has some cough with sputum difficult breathing Problem List Medical Problems: (1) Generalized weakness Status: Acute (2) Hypoxia Status: Acute (3) Pleural effusion on left Status: Acute (4) Pneumonia Status: Acute Review of Systems Constitutional: + fatigue, + weakness, No chills, No fever, No problem reported , No sweats, No weight loss Eyes: No diplopia, No discharge, No eye pain, No redness, No worsening of vision ENT: No dental problems, No hearing loss, No nasal symptoms, No sore throat, No tinnitus, No trouble swallowing, No unusual epistaxis Respiratory: + cough, + see HPI, + sputum, No dyspnea at rest, No dyspnea on exertion, No hemoptysis, No shortness of breath, No wheezing Cardiac: No PND, No chest pain, No claudication, No edema, No orthopnea, No palpitations Abdomen: No constipation, No diarrhea, No nausea, No pain, No vomiting Musculoskeletal: No calf pain, No joint pain, No muscle pain, No swelling Female : No abnormal vaginal bleeding, No dysuria, No hematuria, No incontinence, No urinary frequency, No vaginal discharge Neurologic: + weakness (left-sided weakness is not new), No balance problems, No memory loss, No numbness/tingling, No paralysis, No vertigo Psychiatric: No anhedonism, No anxiety, No depression symptoms, No insomnia, No substance abuse Heme: No abnormal bleeding/bruising, No clotting problems, No night sweats, No swollen lymph nodes Endo: No excessive thirst, No excessive urination, No fatigue Skin: No bleeding, No color change, No itch, No new/changing skin lesions, No rash Objective Vital Signs Date Time Temp Pulse Resp B/P Pulse Ox O2 Delivery O2 Flow Rate FiO2 10/15/16 11:25 36.2 80 16 150/82 93 Room Air 10/15/16 08:00 97 Room Air 2.0 10/15/16 07:57 36.5 58 16 157/86 97 Room Air 10/15/16 07:00 77 16 92 Room Air 10/15/16 04:31 36.5 65 18 159/88 97 Room Air 10/15/16 04:00 Room Air 10/15/16 00:00 Room Air 10/14/16 23:21 37.1 89 18 158/93 94 Room Air 10/14/16 20:00 Room Air 10/14/16 19:50 37.1 103 18 145/96 91 Room Air 10/14/16 19:50 88 16 94 Room Air 10/14/16 16:27 37.0 108 18 154/88 93 10/14/16 16:00 Room Air 10/14/16 14:19 87 16 94 Room Air Physical Exam General Appearance: WD/WN, no apparent distress Eyes: normal inspection, PERRL, EOMI, sclerae normal ENT: normal ENT inspection, hearing grossly normal, pharynx normal Neck: supple, no adenopathy, thyroid normal, no JVD, no carotid bruits, trachea midline Respiratory/Chest: chest non-tender, no respiratory distress, no accessory muscle use, + decreased breath sounds Cardiovascular: regular rate, rhythm, no edema, no gallop, no JVD, no murmur Abdomen: normal bowel sounds, non tender, soft, no organomegaly, no pulsatile mass Extremities: normal range of motion, non-tender, normal inspection, no pedal edema, no calf tenderness, normal capillary refill, pelvis stable Neurologic/Psychiatric: raw silk grader II-XII nml as tested, no motor/sensory deficits, alert, normal mood/affect, oriented x 3, + motor weakness (in left lower and upper extremity, which is not new) Skin: normal color, warm/dry, no rash Lymphatic: no adenopathy Laboratory Results Last 24 Hours Test 10/15/16 05:58 White Blood Count 8.46 K/uL Red Blood Count 4.56 M/uL Hemoglobin 12.9 g/dL Hematocrit 39.4 % Mean Corpuscular Volume 86.4 fL Mean Corpuscular Hemoglobin 28.3 pg Mean Corpuscular Hemoglobin Concent 32.7 g/dl RDW Standard Deviation 49.3 fL RDW Coefficient of Variation 15.4 % Platelet Count 226 K/uL Mean Platelet Volume 10.1 fL Sodium Level 144 mmol/L Potassium Level 3.9 mmol/L Chloride Level 109 mmol/L Carbon Dioxide Level 26 mmol/L Anion Gap 9.0 mmol/L Blood Urea Nitrogen 11 mg/dl Creatinine 0.62 mg/dl Est Creatinine Clear Calc Drug Dose 85.6 ml/min Estimated GFR () 108.1 Estimated GFR (Non- 93.3 BUN/Creatinine Ratio 17.5 Random Glucose 122 mg/dl Calcium Level 8.6 mg/dl Magnesium Level 2.3 mg/dl Assessment and Plan 66 y/o female admitted because of pneumonia on 10/13/2016 with c/o generalized weakness and cold-like symptoms x 2 days. CXR reveals patchy airspace consolidation of L lung base and small pleural effusion SIRS from Community Acquired Pneumonia: MILD IMPROVEMENT - Has been on Levaquin 750 mg IV daily, will change to by mouth - Xopenex and Atrovent nebs JANY and PRN - Guaifenesin 100 mg Q6H - Prednisone 40 mg po BID, start tapering PMHx of CVA with L Residual Deficits (February 2016), HLD, HTN, Chronic PVCs, COPD?, and Bipolar Disorder: Stable continue current medication Disposition: - PT/OT evaluations - lives at home with and utilizes a cane; no recent falls; only has approx 3 steps to enter home, PT OT possible okay for patient to go home - However patient shows requested possible need of placement, I called to , no answer, will have CM to continue follow up - database administration manager on the case Discharge planning: home with home health
[2016-10-15] MEDS: ENOXAPARIN 40 MG/0.4 ML SYR SC SCH (17:00)
[2016-10-15] MEDS: DULOXETINE (CYMBALTA) 30 MG CAP PO SCH (20:37)
[2016-10-15] MEDS: TRAZODONE HCL 100 MG TAB PO SCH (20:38)
[2016-10-15] MEDS: CLONAZEPAM 0.5 MG TAB PO SCH (20:38)
[2016-10-15] MEDS: MONTELUKAST SOD 10 MG TAB PO SCH (20:39)
[2016-10-15] MEDS: RANITIDINE HCL 150 MG TAB PO SCH (20:39)
[2016-10-16] VITALS (8 sets, daily range): BP systolic 127–158; BP diastolic 92–96; PULSE 78–112; TEMP 36.5–37.1; O2SAT 90–93
[2016-10-16] MEDS: IPRATROPIUM BROMIDE NEB SOLN 0.02% 2.5 ML VIAL INH SCH ×4 (02:22→19:25)
[2016-10-16] MEDS: LEVALBUTEROL 1.25MG/0.5ML NEB INH SCH ×4 (02:22→19:25)
[2016-10-16 05:42] LABS: HEMATOCRIT 38.6 % (37-47); MEAN CELL VOLUME 85.8 fL (80-100); MEAN CORPUSCULAR HGB CONC 32.6 g/dl (32-36); MEAN PLATELET VOLUME 9.5 fL (7.4-10.4); PLATELET COUNT 237 K/uL (130-400)
[2016-10-16] MEDS: GUAIFENESIN SUGAR FREE 100 MG/5 ML UDC PO SCH ×3 (05:57→18:00)
[2016-10-16] MEDS: LEVOTHYROXINE 100 MCG TAB PO SCH (05:58)
[2016-10-16 06:06] LABS: BUN/CREATININE RATIO 19.6 (10-20); CALCIUM 8.4 mg/dl (8.5-10.1); CREATININE 0.69 mg/dl (0.60-1.20); POTASSIUM 3.9 mmol/L (3.5-5.1)
[2016-10-16] MEDS: QUETIAPINE FUMARATE 200 MG TABCR PO SCH (07:52)
[2016-10-16] MEDS: LISINOPRIL 5 MG TAB PO SCH (07:53)
[2016-10-16] MEDS: DULOXETINE HCL 60 MG CAP PO SCH (07:53)
[2016-10-16] MEDS: CLOPIDOGREL BISULFATE 75 MG TAB PO SCH (07:53)
[2016-10-16] MEDS: METOPROLOL SUCC 25MG EXT REL TAB PO SCH (07:53)
[2016-10-16] MEDS: LEVOFLOXACIN 750 MG TAB PO SCH (11:13)
--- NOTE | 2016-10-16 12:01 | Progress Note ---
Subjective Date of Service: October 16, 2016. Subjective Pt evaluation today including: conversation w/ patient, physical exam, chart review, lab review, review of studies, review of inpatient medication list Continued doing okay, up to chair, still some cough and sputum, no difficulty breathing Problem List Medical Problems: (1) Generalized weakness Status: Acute (2) Hypoxia Status: Acute (3) Pleural effusion on left Status: Acute (4) Pneumonia Status: Acute Review of Systems Constitutional: + fatigue, + weakness, No chills, No fever, No problem reported , No sweats, No weight loss Eyes: No diplopia, No discharge, No eye pain, No redness, No worsening of vision ENT: No dental problems, No hearing loss, No nasal symptoms, No sore throat, No tinnitus, No trouble swallowing, No unusual epistaxis Respiratory: + cough, + sputum, No dyspnea at rest, No dyspnea on exertion, No hemoptysis, No shortness of breath, No wheezing Cardiac: No PND, No chest pain, No claudication, No edema, No orthopnea, No palpitations Abdomen: No constipation, No diarrhea, No nausea, No pain, No vomiting Musculoskeletal: No calf pain, No joint pain, No muscle pain, No swelling Female : No abnormal vaginal bleeding, No dysuria, No hematuria, No incontinence, No urinary frequency, No vaginal discharge Neurologic: + weakness (left-sided weakness is not new), No balance problems, No memory loss, No numbness/tingling, No paralysis, No vertigo Psychiatric: No anhedonism, No anxiety, No depression symptoms, No insomnia, No substance abuse Heme: No abnormal bleeding/bruising, No clotting problems, No night sweats, No swollen lymph nodes Endo: No excessive thirst, No excessive urination, No fatigue Skin: No bleeding, No color change, No itch, No new/changing skin lesions, No rash Objective Vital Signs Date Time Temp Pulse Resp B/P Pulse Ox O2 Delivery O2 Flow Rate FiO2 10/16/16 11:15 37.1 101 20 149/96 90 Room Air 10/16/16 08:00 Room Air 10/16/16 08:00 92 Room Air 10/16/16 07:34 78 16 92 Room Air 10/16/16 07:24 36.9 87 18 152/92 92 Room Air 10/16/16 04:54 36.9 81 18 151/94 93 Room Air 10/16/16 04:00 Room Air 10/16/16 00:00 Room Air 10/15/16 23:26 36.8 110 20 163/84 93 Room Air 10/15/16 20:00 93 Room Air 10/15/16 19:48 36.8 86 18 143/90 93 Room Air 10/15/16 19:04 78 16 92 Room Air 10/15/16 16:00 93 Room Air 10/15/16 15:53 36.9 93 18 122/71 93 Room Air Physical Exam General Appearance: WD/WN, no apparent distress, + thin, + pertinent finding ( looks good) Eyes: normal inspection, PERRL, EOMI, sclerae normal ENT: normal ENT inspection, hearing grossly normal, pharynx normal Neck: supple, no adenopathy, thyroid normal, no JVD, no carotid bruits, trachea midline Respiratory/Chest: chest non-tender, normal breath sounds, no respiratory distress, no accessory muscle use, + decreased breath sounds, + rales Cardiovascular: regular rate, rhythm, no edema, no gallop, no JVD, no murmur Abdomen: normal bowel sounds, non tender, soft, no organomegaly, no pulsatile mass Extremities: normal range of motion, non-tender, normal inspection, no pedal edema, no calf tenderness, normal capillary refill, pelvis stable Neurologic/Psychiatric: communication equipment repairer II-XII nml as tested, alert, normal mood/affect, oriented x 3, + pertinent finding (left-sided weakness is not new) Skin: normal color, warm/dry, no rash Lymphatic: no adenopathy Laboratory Results Last 24 Hours Test 10/16/16 05:15 White Blood Count 7.00 K/uL Red Blood Count 4.50 M/uL Hemoglobin 12.6 g/dL Hematocrit 38.6 % Mean Corpuscular Volume 85.8 fL Mean Corpuscular Hemoglobin 28.0 pg Mean Corpuscular Hemoglobin Concent 32.6 g/dl RDW Standard Deviation 48.6 fL RDW Coefficient of Variation 15.2 % Platelet Count 237 K/uL Mean Platelet Volume 9.5 fL Sodium Level 142 mmol/L Potassium Level 3.9 mmol/L Chloride Level 107 mmol/L Carbon Dioxide Level 28 mmol/L Anion Gap 7.0 mmol/L Blood Urea Nitrogen 14 mg/dl Creatinine 0.69 mg/dl Est Creatinine Clear Calc Drug Dose 77.0 ml/min Estimated GFR () 104.4 Estimated GFR (Non- 90.1 BUN/Creatinine Ratio 19.6 Random Glucose 115 mg/dl Calcium Level 8.4 mg/dl Assessment and Plan 66 y/o female admitted because of pneumonia on 10/13/2016 with c/o generalized weakness and cold-like symptoms x 2 days. CXR reveals patchy airspace consolidation of L lung base and small pleural effusion SIRS from Community Acquired Pneumonia: MILD IMPROVEMENT Blood culture negative Community Acquired Pneumonia: Stable and improving - Has been on Levaquin 750 mg IV daily, was changed to by mouth - Xopenex and Atrovent nebs JANY and PRN - Guaifenesin 100 mg Q6H - Prednisone 40 mg po BID, start tapering with 20 mg by mouth twice a day PMHx of CVA with L Residual Deficits (February 2016), HLD, HTN, Chronic PVCs, COPD?, and Bipolar Disorder: Stable continue current medication Disposition: - PT/OT evaluations - lives at home with and utilizes a cane; no recent falls; only has approx 3 steps to enter home, - However patient shows requested possible need of placement, I called to , no answer, ancillary services manager therapy has referral to custodial - ancillary services manager therapy on the case - Patient possible ready to be discharged when custodial Continued [facility] stay due to: home environment unsafe for pt Discharge planning: home with home health
[2016-10-16] MEDS: ENOXAPARIN 40 MG/0.4 ML SYR SC SCH (15:48)
[2016-10-16] MEDS: RANITIDINE HCL 150 MG TAB PO SCH (20:00)
[2016-10-16] MEDS: TRAZODONE HCL 100 MG TAB PO SCH (20:01)
[2016-10-16] MEDS: DULOXETINE (CYMBALTA) 30 MG CAP PO SCH (20:01)
[2016-10-16] MEDS: MONTELUKAST SOD 10 MG TAB PO SCH (20:01)
[2016-10-16] MEDS: CLONAZEPAM 0.5 MG TAB PO SCH (20:01)
[2016-10-17] VITALS (7 sets, daily range): BP systolic 149–178; BP diastolic 66–126; PULSE 69–128; TEMP 36.4–37.4; O2SAT 91–96
[2016-10-17] MEDS: IPRATROPIUM BROMIDE NEB SOLN 0.02% 2.5 ML VIAL INH SCH ×4 (01:38→19:27)
[2016-10-17] MEDS: LEVALBUTEROL 1.25MG/0.5ML NEB INH SCH ×4 (01:38→19:27)
[2016-10-17] MEDS: GUAIFENESIN SUGAR FREE 100 MG/5 ML UDC PO SCH ×5 (05:49→23:35)
[2016-10-17] MEDS: LEVOTHYROXINE 100 MCG TAB PO SCH (05:54)
[2016-10-17] MEDS: DULOXETINE HCL 60 MG CAP PO SCH ×2 (07:50→08:17)
[2016-10-17] MEDS: LISINOPRIL 5 MG TAB PO SCH ×2 (07:50→08:18)
[2016-10-17] MEDS: BREXPIPRAZOLE 1 MG TAB PO SCH ×2 (07:51→08:17)
[2016-10-17] MEDS: CLOPIDOGREL BISULFATE 75 MG TAB PO SCH ×2 (07:52→08:17)
[2016-10-17] MEDS: METOPROLOL SUCC 25MG EXT REL TAB PO SCH ×2 (07:52→08:17)
[2016-10-17] MEDS: QUETIAPINE FUMARATE 200 MG TABCR PO SCH ×2 (07:53→08:17)
[2016-10-17] MEDS ORDERED: BREXPIPRAZOLE 1 MG SCH (09:00)
[2016-10-17] MEDS: LEVOFLOXACIN 750 MG TAB PO SCH ×2 (11:00→12:07)
--- NOTE | 2016-10-17 11:23 | Hospitalist Progress Note ---
Hospitalist Progress Note Date of Service October 17, 2016. Subjective Pt evaluation today including: conversation w/ patient, physical exam, chart review, lab review, review of studies, review of inpatient medication list Patient seen and evaluated. Patient noted to have labile moods and some paranoia -like behavior. Patient is alert and oriented but does make odd statements. Stated that she isn' t supposed to be around odd smells and stated this hospital has "something odd going on" She reports cough is markedly improved and feels at her baseline in regards to generalized weakness. Continues to have a flat affect/mask-like face. She verbalizes no other complaints at this time. Constitutional: No chills, No fever Eyes: No worsening of vision ENT: No sore throat, No trouble swallowing Respiratory: No cough, No shortness of breath, No sputum Cardiovascular: No chest pain, No palpitations Abdomen: No constipation, No diarrhea, No nausea, No pain, No vomiting Musculoskeletal: No calf pain, No swelling Female : No dysuria Medications Current Inpatient Medications Medications (Trade) Dose Ordered Sig/Natali Route Start Time Stop Time Status Last Admin Dose Admin Enoxaparin Sodium (Lovenox Inj) 40 mg Q24H SC 10/13/16 16:00 11/12/16 15:59 10/16/16 15:48 40 MG Acetaminophen (Tylenol Tab) 650 mg Q4H PRN PO 10/13/16 08:15 11/12/16 08:14 Al Hydrox/Mg Hydrox/Simethicone (Maalox Max Susp) 15 ml Q4H PRN PO 10/13/16 08:15 11/12/16 08:14 Magnesium Hydroxide (Milk Of Magnesia Susp) 30 ml Q12H PRN PO 10/13/16 08:15 11/12/16 08:14 Ondansetron HCl (Zofran Inj) 4 mg Q6H PRN IV 10/13/16 08:15 11/12/16 08:14 Polyethylene (Miralax Powder Packet) 17 gm DAILY PRN PO 10/13/16 08:15 11/12/16 08:14 Clopidogrel Bisulfate (plAVix TAB) 75 mg QAM PO 10/14/16 09:00 11/13/16 08:59 10/16/16 07:53 75 MG Cyclobenzaprine HCl (Flexeril Tab) 5 mg DAILY PRN PO 10/13/16 08:15 11/12/16 08:14 Docusate Sodium (coLACE CAP) 100 mg BID PRN PO 10/13/16 08:15 11/12/16 08:14 Duloxetine HCl (Cymbalta Cap) 30 mg HS PO 10/13/16 21:00 11/12/16 20:59 10/16/16 20:01 30 MG Duloxetine HCl (Cymbalta Cap) 60 mg QAM PO 10/14/16 09:00 11/13/16 08:59 10/16/16 07:53 60 MG Levothyroxine Sodium (Synthroid Tab) 100 mcg DAILYBB PO 10/14/16 06:30 11/13/16 06:29 10/17/16 05:54 100 MCG Metoprolol Succinate (Toprol Xl Tab) 25 mg DAILY PO 10/14/16 09:00 11/13/16 08:59 10/16/16 07:53 25 MG Montelukast Sodium (Singulair Tab) 10 mg HS PO 10/13/16 21:00 11/12/16 20:59 10/16/16 20:01 10 MG Oxycodone HCl (Roxicodone Immediate Rel Tab) 5 mg Q6H PRN PO 10/13/16 08:15 10/27/16 08:14 Quetiapine Fumarate (seroQUEL XR TAB) 400 mg DAILY PO 10/14/16 09:00 11/13/16 08:59 10/16/16 07:52 400 MG Ranitidine HCl (zANTac TAB) 150 mg HS PO 10/13/16 21:00 11/12/16 20:59 10/16/16 20:00 150 MG Trazodone HCl (Desyrel Tab) 150 mg HS PO 10/13/16 21:00 11/12/16 20:59 10/16/16 20:01 150 MG Valacyclovir HCl (Valtrex Tab) 500 mg QAM PO 10/14/16 09:00 10/24/16 08:59 10/16/16 07:53 500 MG Ipratropium [place] (Atrovent 0.02% 0.5MG/2.5ML Neb) 0.5 mg Q6R INH 10/13/16 15:00 11/12/16 14:59 10/17/16 06:57 0.5 MG Levalbuterol (Xopenex 1.25MG/ 0.5ML Neb) 1.25 mg Q6R INH 10/13/16 15:00 11/12/16 14:59 10/17/16 06:57 1.25 MG Levalbuterol (Xopenex 1.25MG/ 0.5ML Neb) 1.25 mg Q2H PRN INH 10/13/16 08:15 11/12/16 08:[address] [place] (Atrovent 0.02% 0.5MG/2.5ML Neb) 0.5 mg Q2H PRN INH 10/13/16 08:15 11/12/16 08:14 Guaifenesin (Robitussin Sugar Free Syrup) 100 mg Q6H PO 10/13/16 18:00 11/12/16 17:59 10/16/16 11:13 100 MG Clonazepam (Klonopin Tab) 0.5 mg HS PO 10/13/16 21:00 11/12/16 20:59 10/16/16 20:01 0.5 MG Levofloxacin (Levaquin Tab) 750 mg DAILY@11 PO 10/15/16 11:00 10/20/16 10:59 10/16/16 11:13 750 MG Lisinopril (Zestril Tab) 5 mg QAM PO 10/16/16 09:00 11/15/16 08:59 10/16/16 07:53 5 MG Prednisone (PredniSONE TAB) 20 mg BID PO 10/16/16 21:00 11/15/16 20:59 10/16/16 20:01 20 MG Brexpiprazole (Rexulti) 1 mg QAM PO 10/17/16 09:00 11/16/16 08:59 Objective Vital Signs Date Time Temp Pulse Resp B/P Pulse Ox O2 Delivery O2 Flow Rate FiO2 10/17/16 08:00 Room Air 10/17/16 07:20 36.4 108 20 167/79 94 Room Air 10/17/16 06:57 96 16 95 Room Air 10/17/16 04:00 Room Air 10/17/16 00:40 36.7 69 18 157/66 94 Room Air 10/17/16 00:00 Room Air 10/16/16 20:00 Room Air 10/16/16 19:57 36.5 112 20 158/96 93 Room Air 10/16/16 19:25 103 16 93 Room Air 10/16/16 16:00 Room Air 10/16/16 15:06 36.6 89 18 127/92 93 Room Air 10/16/16 12:00 Room Air 10/16/16 11:15 37.1 101 20 149/96 90 Room Air Physical Exam General Appearance: WD/WN, no apparent distress, + thin, + pertinent finding ( flat affect/mask-like face) Eyes: sclerae normal ENT: hearing grossly normal Neck: supple, no JVD, trachea midline Respiratory/Chest: lungs clear, normal breath sounds, no respiratory distress, no accessory muscle use Cardiovascular: regular rate, rhythm, no gallop, no murmur Abdomen: normal bowel sounds, non tender, soft Extremities: no pedal edema, no calf tenderness Neurologic/Psychiatric: alert Skin: normal color, warm/dry Assessment and Plan Ms. Abernathy is a 66 y/o female with PMHx of CVA with L Residual Deficits ( February 2016), HLD, HTN, Chronic PVCs, COPD?, and Bipolar Disorder who presents to the ED c/o generalized weakness and cold-like symptoms x 2 days. CXR reveals patchy airspace consolidation of L lung base and small pleural effusion SIRS from Community Acquired Pneumonia: MILD IMPROVEMENT - Levaquin 750 mg po daily - DAY #4/7 - Xopenex and Atrovent nebs NATALI and PRN - Guaifenesin 100 mg Q6H - Prednisone 20 mg po BID H/O Frequent PVCs: - Metoprolol 25 mg daily COPD/Allergies: - Patient reports COPD but then stated its mostly allergies - Singulair 10 mg daily H/O CVA with L Residual Deficits: - Per patient and she has not taken Lipitor x "months" -- Initially on 80 mg daily but reduced to 20 mg due to myalgias and has since stopped taking it - Plavix 75 mg daily - Flexeril 5 mg daily PRN and Oxycodone 5 mg Q6H PRN Hypothyroidism: - Synthroid 100 mcg daily Bipolar Disorder: - Cymbalta 60 mg daily and 30 mg HS - Seroquel XR 400 mg daily and Rexulti 1 mg daily - Clonazepam 0.5 mg HS - on allergy list however patient and confirm daily use - Trazadone 150 mg HS Constipation: - Colace 100 mg BID PRN DVT Prophylaxis: Lovenox 40 mg SC daily Code Status: FULL RESUSCITATION Disposition: - Suitable for transfer to Med/Surg - PT/OT evaluations - lives at home with and utilizes a cane; no recent falls; only has approx 3 steps to enter home -- Recommendations for inpatient rehab - Shannon banerjee recommending [facility]
--- NOTE | 2016-10-17 14:41 | Psychiatric Consultation ---
Consultation Date of Consultation October 17, 2016. Identifying Data Milagros Abernathy is a 66-year-old female who currently lives in [place] with her and their pet dog Milagros Abernathy was admitted medically for her pneumonia and weakness. Chief Complaint "There must be drugs in here". History of Present Illness Milagros Abernathy is a 66 year old female with reported h/o Bipolar d/o along with PMH of CVA with L Residual Deficits (Feb 2106, HLD, HTN, chronic PVC's, hypothyroidism and possible COPD, who has been admitted medically with presentation of generalized and SIRS from Community Acquired Pneumonia. She is being given Levaquin IV and NSS and xopenex and Atrovent nebs scheduled and prn and prednisone. Pt presents with paranoid thinking that is impacting her interaction with chief writer and lead her to shut down and seek the end of the interaction with this chief writer with weariness and paranoid thinking throughout the assessment. She scored a 20/30 on MMSE with only 1 point out of 5 for attention and calculation and 0 points out of 3 for recall, and missing 3 points out of 10 in orientation. Pt's cognitive impairments and impairments of insight were impacting the reliability of the information provided by her to chief writer. She was unable to confirm her actual medications and doses taken recently. She denied SI or HI. She denied psychotic features. She denied being depressed and denied feeling anxious recently. She endorsed being told that she has bipolar d/o but stated was told this at least once in the past. She cannot recall the name of her psychiatrist or timing of last appointment but states has seen him at [facility] occasionally and he provides her medication. She endorsed having hallucinated during [facility] hospital stay years ago but would elaborate on this. She was unable to clarify h/o manic symptoms in the past. med reconciliation has cymbalta 60+30mg=90mg a day, Seroquel 400mg hs, Rexulti 1mg am, Klonopin 0.5mg hs (despite listed as allergy and confirmed as being taken), ativan pr at 0.5 and trazodone 150mg hs, A med list from nurse liaison also included Topamax 75mg bid and lamictal 125mg am, and Thorazine 125mg tid, pt unable to clarify but thinks at least Topamax was stopped a while back. Past Psychiatric History Current OP Treatment: psychiatrist (pt states [facility] but doesn ot know the name or timing of last appt) Prior OP Treatment: psychiatrist Prior Psych Hospitalizations: other (stated past psychiatric hospitalization, unable/unwilling to provide details on timing, name of hospital or number of admissions ) Access to a Gun: No Suicide Attempts: Yes (one time many years ago would not elaborate ) Past Medical/Surgical History History of Concussion/Seizure: No HTN,HLD, current pneumonia, s/p CVA with persistent L residual deficits,PVC's, possible COPD, hypothyroidism on Synthroid, bipolar d/o Allergies Allergies: Coded Allergies: Clonazepam (Unverified Allergy, Unknown, ., 04/30/15) Erythromycin (Unverified Allergy, Unknown, UNK, 04/30/15) Risperidone (Unverified Allergy, Unknown, UNK, 04/30/15) Home Medications Scheduled Atorvastatin (Lipitor), 20 MG PO HS Brexpiprazole (Rexulti), 1 MG PO QAM Clonazepam (Klonopin), 0.5 MG PO HS Clopidogrel (Plavix), 75 MG PO QAM Duloxetine HCl (Cymbalta), 30 MG PO HS Duloxetine Hcl (Cymbalta), 60 MG PO QAM Levothyroxine Sodium (Synthroid), 1 TAB PO QAM Metoprolol Succ (Toprol Xl) (Toprol-Xl), 25 MG PO DAILY Montelukast Sodium (Singulair), 1 TAB PO HS Quetiapine Fumarate Xr (Seroquel Xr), 400 MG PO DAILY Ranitidine Hcl (Zantac), 150 MG PO HS Trazodone Hcl (Trazodone), 150 MG PO HS Valacyclovir (Valtrex), 500 MG PO QAM Scheduled PRN Cyclobenzaprine Hcl (Flexeril), 5 MG PO UD PRN for Muscle Spasms Docusate Sodium (Docusate Sodium), 100 MG PO BID PRN for Constipation Lorazepam (Ativan), 0.5 MG PO UD PRN for Anxiety Oxycodone Ir (Roxicodone Ir), 5 MG PO UD PRN for Pain Family History Heart Disease MOTHER BROTHER Hypertension Alcohol Use Alcohol Use In Past 12 Months: No Smoking Use Smoking Status: Never Smoker Personal History Education: graduated college (B.S. in education) Work History: retired driving school instructor Relationship History: Examination Vital Signs Vital Signs Past 12 Hours Date Time Temp Pulse Resp B/P Pulse Ox O2 Delivery O2 Flow Rate FiO2 10/17/16 12:00 Room Air 10/17/16 11:31 37.4 125 20 178/126 93 Room Air 10/17/16 08:00 Room Air 10/17/16 07:20 36.4 108 20 167/79 94 Room Air 10/17/16 06:57 96 16 95 Room Air 10/17/16 04:00 Room Air Mental Examination During interview pt is: alert and oriented, guarded, other (fair engagement but then ressitant and ended assessment) Appearance: other (hospital gown) Motor behavior is: other (laying in hospital bed, no abnormal movements noted ) Speech: normal in rate, rhythm & volume Affect: flat, other (suspicious) Mood is: other ("good") Thought process: looseness of associations Thought content: paranoid Suicidal thought are: denied Homicidal thoughts are: denied Hallucinations: denies auditory, denies visual Cognition: other (concentration grossly impaired and unable to spell "world" backwards ) Insight: poor Judgement: poor Impression / Recommendations Impression Milagros Abernathy is a 66 year old female with reported h/o Bipolar d/o on psychiatric medications. Admitted for SIRS from pneumonia on IV antibotics and prednisone with H/O of PMH of CVA with L Residual Deficits (Feb 2106), HLD, HTN, chronic PVC's, and possible COPD, being referred for possible ECF placement Risk Factors Assessment : Yes Access to guns: No Health problems: Yes Mental Health Diagnoses: Yes Previous attempt: Yes Previous psychiatric stay: Yes Protective Factors Assessment : Yes Recommendations (1) Bipolar disorder -continue currently prescribed meds of Cymbalta 60mg am and 30mg hs, Rexulti 1mg am, Klonopin 0.5mg hs, trazodone 150mghs, and Seroquel 150mg hs. -attempt to obtain collateral from about outpatient treatment and to confirm have full current psych medication fully reconciled and any recent psychiatric sympotms and overall presentation. -agree with holding ativan prn order
[2016-10-17] MEDS: ENOXAPARIN 40 MG/0.4 ML SYR SC SCH (14:42)
[2016-10-17] MEDS: MONTELUKAST SOD 10 MG TAB PO SCH (23:26)
[2016-10-17] MEDS: RANITIDINE HCL 150 MG TAB PO SCH (23:26)
[2016-10-17] MEDS: TRAZODONE HCL 100 MG TAB PO SCH (23:26)
[2016-10-17] MEDS: DULOXETINE (CYMBALTA) 30 MG CAP PO SCH (23:27)
[2016-10-17] MEDS: CLONAZEPAM 0.5 MG TAB PO SCH (23:34)
[2016-10-17] MEDS: IPRATROPIUM BROMIDE HFA INHALER INH SCH (23:35)
[2016-10-17] MEDS: LEValbuterol HFA 15GM INHALER INH SCH (23:35)
[2016-10-18] VITALS (7 sets, daily range): BP systolic 130–169; BP diastolic 73–108; PULSE 76–117; TEMP 36.4–36.7; O2SAT 92–97
[2016-10-18] MEDS: LEVOTHYROXINE 100 MCG TAB PO SCH (05:54)
[2016-10-18] MEDS: LEValbuterol HFA 15GM INHALER INH SCH ×3 (05:56→18:24)
[2016-10-18] MEDS: IPRATROPIUM BROMIDE HFA INHALER INH SCH ×3 (05:57→18:25)
[2016-10-18] MEDS: GUAIFENESIN SUGAR FREE 100 MG/5 ML UDC PO SCH ×2 (05:58→12:00)
[2016-10-18] MEDS: BREXPIPRAZOLE 1 MG TAB PO SCH (08:03)
[2016-10-18] MEDS: DULOXETINE HCL 60 MG CAP PO SCH (08:03)
[2016-10-18] MEDS: QUETIAPINE FUMARATE 200 MG TABCR PO SCH (08:03)
[2016-10-18] MEDS: METOPROLOL SUCC 25MG EXT REL TAB PO SCH (08:04)
[2016-10-18] MEDS: CLOPIDOGREL BISULFATE 75 MG TAB PO SCH (08:04)
[2016-10-18] MEDS: LISINOPRIL 10 MG TAB PO SCH (09:00)
[2016-10-18] MEDS: LEVOFLOXACIN 750 MG TAB PO SCH (10:53)
[2016-10-18] MEDS ORDERED: DOCUSATE SODIUM 100 MG CAP PO ONE (11:37)
[2016-10-18] MEDS ORDERED: POLYETHYLENE (MIRALAX) 17 GM PACK PO ONE (11:45)
--- NOTE | 2016-10-18 13:15 | Hospitalist Progress Note ---
Hospitalist Progress Note Date of Service October 18, 2016. Subjective Pt evaluation today including: conversation w/ patient, physical exam, chart review, lab review, review of studies, review of inpatient medication list Patient seen and evaluated. Continues to have paranoid thoughts especially at night. Intermittently is refusing medications. On evaluation today, patient is calm and does not express any odd behaviors or making odd statements. Did state she feels like she hasn't had a BM in multiple days and would like her home medications. Changed Colace to [facility] and added a dose of Miralax. She is coloring in chair and looks content. Expresses that her cough is completely resolved and weakness resolved and feels at her baseline. Reviewed psychiatry note with possible additional medications for mood. Upon admission personally reviewed the list provided by the and the medications currently ordered where continued except for the Ativan and did not note those Lamictal, Thorazine, or Topamax. Constitutional: No chills, No fever Respiratory: No cough, No shortness of breath Cardiovascular: No chest pain Abdomen: + constipation, No diarrhea, No nausea, No pain, No vomiting Musculoskeletal: No calf pain Female : No dysuria Psychiatric: No anxiety, No depression symptoms Medications Current Inpatient Medications Medications (Trade) Dose Ordered Sig/[facility] Route Start Time Stop Time Status Last Admin Dose Admin Enoxaparin Sodium (Lovenox Inj) 40 mg Q24H SC 10/13/16 16:00 11/12/16 15:59 10/16/16 15:48 40 MG Acetaminophen (Tylenol Tab) 650 mg Q4H PRN PO 10/13/16 08:15 11/12/16 08:14 Al Hydrox/Mg Hydrox/Simethicone (Maalox Max Susp) 15 ml Q4H PRN PO 10/13/16 08:15 11/12/16 08:14 Magnesium Hydroxide (Milk Of Magnesia Susp) 30 ml Q12H PRN PO 10/13/16 08:15 11/12/16 08:14 Ondansetron HCl (Zofran Inj) 4 mg Q6H PRN IV 10/13/16 08:15 11/12/16 08:14 Polyethylene (Miralax Powder Packet) 17 gm DAILY PRN PO 10/13/16 08:15 11/12/16 08:14 Clopidogrel Bisulfate (plAVix TAB) 75 mg QAM PO 10/14/16 09:00 11/13/16 08:59 10/18/16 08:04 75 MG Cyclobenzaprine HCl (Flexeril Tab) 5 mg DAILY PRN PO 10/13/16 08:15 11/12/16 08:14 Duloxetine HCl (Cymbalta Cap) 30 mg HS PO 10/13/16 21:00 11/12/16 20:59 10/17/16 23:27 30 MG Duloxetine HCl (Cymbalta Cap) 60 mg QAM PO 10/14/16 09:00 11/13/16 08:59 10/18/16 08:03 60 MG Levothyroxine Sodium (Synthroid Tab) 100 mcg DAILYBB PO 10/14/16 06:30 11/13/16 06:29 10/18/16 05:54 100 MCG Metoprolol Succinate (Toprol Xl Tab) 25 mg DAILY PO 10/14/16 09:00 11/13/16 08:59 10/18/16 08:04 25 MG Montelukast Sodium (Singulair Tab) 10 mg HS PO 10/13/16 21:00 11/12/16 20:59 10/17/16 23:26 10 MG Oxycodone HCl (Roxicodone Immediate Rel Tab) 5 mg Q6H PRN PO 10/13/16 08:15 10/27/16 08:14 Quetiapine Fumarate (seroQUEL XR TAB) 400 mg DAILY PO 10/14/16 09:00 11/13/16 08:59 10/18/16 08:03 400 MG Ranitidine HCl (zANTac TAB) 150 mg HS PO 10/13/16 21:00 11/12/16 20:59 10/17/16 23:26 150 MG Trazodone HCl (Desyrel Tab) 150 mg HS PO 10/13/16 21:00 11/12/16 20:59 10/17/16 23:26 150 MG Valacyclovir HCl (Valtrex Tab) 500 mg QAM PO 10/14/16 09:00 10/24/16 08:59 10/18/16 08:04 500 MG Guaifenesin (Robitussin Sugar Free Syrup) 100 mg Q6H PO 10/13/16 18:00 11/12/16 17:59 10/16/16 11:13 100 MG Clonazepam (Klonopin Tab) 0.5 mg HS PO 10/13/16 21:00 11/12/16 20:59 10/17/16 23:34 0.5 MG Levofloxacin (Levaquin Tab) 750 mg DAILY@11 PO 10/15/16 11:00 10/20/16 10:59 10/18/16 10:53 750 MG Brexpiprazole (Rexulti) 1 mg QAM PO 10/17/16 09:00 11/16/16 08:59 10/18/16 08:03 1 MG Ipratropium [place] (Atrovent Hfa Inhaler) 2 puffs Q6 INH 10/18/16 00:00 11/17/16 00:00 10/18/16 12:28 2 PUFFS Levalbuterol (Xopenex Hfa Inhaler) 2 puffs Q6 INH 10/18/16 00:00 11/17/16 00:00 10/18/16 12:27 2 PUFFS Lisinopril (Zestril Tab) 10 mg QAM PO 10/18/16 09:00 11/17/16 08:59 Prednisone (PredniSONE TAB) 20 mg DAILY PO 10/18/16 09:00 11/17/16 08:59 Docusate Sodium (coLACE CAP) 100 mg BID PO 10/18/16 21:00 11/17/16 20:59 Objective Vital Signs Date Time Temp Pulse Resp B/P Pulse Ox O2 Delivery O2 Flow Rate FiO2 10/18/16 11:29 36.6 107 20 168/82 96 Room Air 10/18/16 08:00 Room Air 10/18/16 07:11 36.4 113 20 167/99 92 Room Air 10/18/16 04:33 36.6 76 20 159/108 93 Room Air 10/18/16 00:23 36.4 117 18 169/95 94 Room Air 10/18/16 00:00 Room Air 10/17/16 20:00 Room Air 10/17/16 20:00 37.0 127 18 149/105 93 Room Air 10/17/16 19:28 80 12 96 Room Air 10/17/16 16:00 Room Air 10/17/16 14:47 36.7 128 20 159/115 91 Room Air Physical Exam General Appearance: WD/WN, no apparent distress, + pertinent finding (flat affect/masklike face) Eyes: sclerae normal ENT: hearing grossly normal Neck: supple, no JVD, trachea midline Respiratory/Chest: lungs clear, normal breath sounds, no respiratory distress, no accessory muscle use Cardiovascular: no gallop, no murmur, + tachycardia Abdomen: normal bowel sounds, non tender, soft Extremities: no pedal edema, no calf tenderness Neurologic/Psychiatric: alert Skin: normal color, warm/dry Assessment and Plan Ms. Abernathy is a 66 y/o female with PMHx of CVA with L Residual Deficits ( February 2016), HLD, HTN, Chronic PVCs, COPD?, and Bipolar Disorder who presents to the ED c/o generalized weakness and cold-like symptoms x 2 days. CXR reveals patchy airspace consolidation of L lung base and small pleural effusion SIRS from Community Acquired Pneumonia: MILD IMPROVEMENT - Levaquin 750 mg po daily - DAY #7/10 - Xopenex and Atrovent inhalers - Prednisone 20 mg po daily H/O Frequent PVCs/HTN: - Increased Metoprolol 25 mg daily to 50 mg daily - Increased Lisinopril 5 mg daily to 10 mg daily COPD/Allergies: - Patient reports COPD but then stated its mostly allergies - Singulair 10 mg daily H/O CVA with L Residual Deficits: - Per patient and she has not taken Lipitor x "months" -- Initially on 80 mg daily but reduced to 20 mg due to myalgias and has since stopped taking it - Plavix 75 mg daily - Flexeril 5 mg daily PRN and Oxycodone 5 mg Q6H PRN Hypothyroidism: - Synthroid 100 mcg daily Bipolar Disorder: - Cymbalta 60 mg daily and 30 mg HS - Seroquel XR 400 mg daily and Rexulti 1 mg daily - Clonazepam 0.5 mg HS - on allergy list however patient and confirm daily use - Trazadone 150 mg HS Constipation: - Colace 100 mg BID PRN DVT Prophylaxis: Lovenox 40 mg SC daily Code Status: FULL RESUSCITATION Disposition: - PT/OT evaluations - lives at home with and utilizes a cane; no recent falls; only has approx 3 steps to enter home -- Recommendations for inpatient rehab - [facility] recommending [facility] - [facility] referral placed for SNF Discharge planning: prison facility
[2016-10-18] MEDS ORDERED: METOPROLOL SUCC 25MG EXT REL TAB PO ONE (14:30)
[2016-10-18] MEDS: ENOXAPARIN 40 MG/0.4 ML SYR SC SCH (15:20)
[2016-10-18] MEDS: DOCUSATE SODIUM 100 MG CAP PO SCH (20:46)
[2016-10-18] MEDS: RANITIDINE HCL 150 MG TAB PO SCH (20:46)
[2016-10-18] MEDS: MONTELUKAST SOD 10 MG TAB PO SCH (20:46)
[2016-10-18] MEDS: TRAZODONE HCL 100 MG TAB PO SCH (20:47)
[2016-10-18] MEDS: DULOXETINE (CYMBALTA) 30 MG CAP PO SCH (20:48)
[2016-10-18] MEDS: CLONAZEPAM 0.5 MG TAB PO SCH (20:50)
[2016-10-19] VITALS (7 sets, daily range): BP systolic 98–147; BP diastolic 72–100; PULSE 81–106; TEMP 36.3–36.9; O2SAT 94–96
[2016-10-19] MEDS: IPRATROPIUM BROMIDE HFA INHALER INH SCH ×5 (01:03→23:22)
[2016-10-19 05:47] LABS: HEMATOCRIT 45.4 % (37-47); MEAN CELL VOLUME 85.5 fL (80-100); MEAN CORPUSCULAR HEMOGLOBIN 28.1 pg (25-34); MEAN CORPUSCULAR HGB CONC 32.8 g/dl (32-36); MEAN PLATELET VOLUME 9.4 fL (7.4-10.4); PLATELET COUNT 337 K/uL (130-400); RED BLOOD COUNT 5.31 M/uL (4.2-5.4); WHITE BLOOD COUNT 10.23 K/uL (4.8-10.8)
[2016-10-19] MEDS: LEValbuterol HFA 15GM INHALER INH SCH ×5 (06:11→23:22)
[2016-10-19] MEDS: LEVOTHYROXINE 100 MCG TAB PO SCH (06:11)
[2016-10-19 06:19] LABS: BUN/CREATININE RATIO 19.1 (10-20); CALCIUM 8.2 mg/dl (8.5-10.1); CREATININE 0.84 mg/dl (0.60-1.20); POTASSIUM 3.5 mmol/L (3.5-5.1)
[2016-10-19 06:29] LABS: THYROID STIMULATING HORMONE 10.8 uIu/ml (0.300-4.500)
[2016-10-19] MEDS: CLOPIDOGREL BISULFATE 75 MG TAB PO SCH (08:06)
[2016-10-19] MEDS: BREXPIPRAZOLE 1 MG TAB PO SCH (08:06)
[2016-10-19] MEDS: DULOXETINE HCL 60 MG CAP PO SCH (08:06)
[2016-10-19] MEDS: LEVOFLOXACIN 750 MG TAB PO SCH (08:07)
[2016-10-19] MEDS: DOCUSATE SODIUM 100 MG CAP PO SCH ×2 (08:07→21:04)
[2016-10-19] MEDS: QUETIAPINE FUMARATE 200 MG TABCR PO SCH (08:07)
[2016-10-19] MEDS: LISINOPRIL 10 MG TAB PO SCH (08:08)
[2016-10-19] MEDS: METOPROLOL SUCC 50MG EXT REL TAB PO SCH (08:45)
--- NOTE | 2016-10-19 13:38 | Hospitalist Progress Note ---
Hospitalist Progress Note Date of Service October 19, 2016. Subjective Pt evaluation today including: conversation w/ patient, physical exam, chart review, lab review, review of inpatient medication list Patient seen and evaluated. No acute events overnight. More cooperative with less paranoia. Patient is sitting in chair and alert and oriented. Continues to state that her cough is largely improved and denies SOB. TSH noted to be 10.8 and will increase her Synthroid. She has finished a 7 day course of abx for PNA. Awaiting [facility] [place] Jennifer for acute rehab. Constitutional: No chills, No fever Respiratory: No cough, No shortness of breath Cardiovascular: No chest pain Abdomen: No nausea, No pain, No vomiting Musculoskeletal: No calf pain, No swelling Female : No dysuria Medications Current Inpatient Medications Medications (Trade) Dose Ordered Sig/Natali Route Start Time Stop Time Status Last Admin Dose Admin Enoxaparin Sodium (Lovenox Inj) 40 mg Q24H SC 10/13/16 16:00 11/12/16 15:59 10/16/16 15:48 40 MG Acetaminophen (Tylenol Tab) 650 mg Q4H PRN PO 10/13/16 08:15 11/12/16 08:14 Al Hydrox/Mg Hydrox/Simethicone (Maalox Max Susp) 15 ml Q4H PRN PO 10/13/16 08:15 11/12/16 08:14 Magnesium Hydroxide (Milk Of Magnesia Susp) 30 ml Q12H PRN PO 10/13/16 08:15 11/12/16 08:14 Ondansetron HCl (Zofran Inj) 4 mg Q6H PRN IV 10/13/16 08:15 11/12/16 08:14 Polyethylene (Miralax Powder Packet) 17 gm DAILY PRN PO 10/13/16 08:15 11/12/16 08:14 Clopidogrel Bisulfate (plAVix TAB) 75 mg QAM PO 10/14/16 09:00 11/13/16 08:59 10/19/16 08:06 75 MG Cyclobenzaprine HCl (Flexeril Tab) 5 mg DAILY PRN PO 10/13/16 08:15 11/12/16 08:14 Duloxetine HCl (Cymbalta Cap) 30 mg HS PO 10/13/16 21:00 11/12/16 20:59 10/18/16 20:48 30 MG Duloxetine HCl (Cymbalta Cap) 60 mg QAM PO 10/14/16 09:00 11/13/16 08:59 10/19/16 08:06 60 MG Montelukast Sodium (Singulair Tab) 10 mg HS PO 10/13/16 21:00 11/12/16 20:59 10/18/16 20:46 10 MG Oxycodone HCl (Roxicodone Immediate Rel Tab) 5 mg Q6H PRN PO 10/13/16 08:15 10/27/16 08:14 Quetiapine Fumarate (seroQUEL XR TAB) 400 mg DAILY PO 10/14/16 09:00 11/13/16 08:59 10/19/16 08:07 400 MG Ranitidine HCl (zANTac TAB) 150 mg HS PO 10/13/16 21:00 11/12/16 20:59 10/18/16 20:46 150 MG Trazodone HCl (Desyrel Tab) 150 mg HS PO 10/13/16 21:00 11/12/16 20:59 10/18/16 20:47 150 MG Valacyclovir HCl (Valtrex Tab) 500 mg QAM PO 10/14/16 09:00 10/24/16 08:59 10/19/16 08:06 500 MG Clonazepam (Klonopin Tab) 0.5 mg HS PO 10/13/16 21:00 11/12/16 20:59 10/18/16 20:50 0.5 MG Brexpiprazole (Rexulti) 1 mg QAM PO 10/17/16 09:00 11/16/16 08:59 10/19/16 08:06 1 MG Ipratropium [place] (Atrovent Hfa Inhaler) 2 puffs Q6 INH 10/18/16 00:00 11/17/16 00:00 10/19/16 06:11 2 PUFFS Levalbuterol (Xopenex Hfa Inhaler) 2 puffs Q6 INH 10/18/16 00:00 11/17/16 00:00 10/19/16 06:11 2 PUFFS Lisinopril (Zestril Tab) 10 mg QAM PO 10/18/16 09:00 11/17/16 08:59 10/19/16 08:08 10 MG Prednisone (PredniSONE TAB) 20 mg DAILY PO 10/18/16 09:00 11/17/16 08:59 10/19/16 08:07 20 MG Docusate Sodium (coLACE CAP) 100 mg BID PO 10/18/16 21:00 11/17/16 20:59 10/19/16 08:07 100 MG Metoprolol Succinate (Toprol Xl Tab) 50 mg DAILY PO 10/19/16 09:00 11/18/16 08:59 10/19/16 08:45 50 MG Levothyroxine Sodium (Synthroid Tab) 112 mcg DAILYBB PO 10/20/16 06:30 11/19/16 06:29 Objective Vital Signs Date Time Temp Pulse Resp B/P Pulse Ox O2 Delivery O2 Flow Rate FiO2 10/19/16 12:00 96 Room Air 10/19/16 08:00 Room Air 10/19/16 07:21 36.6 81 18 146/87 96 Room Air 10/19/16 04:57 Room Air 10/19/16 04:00 36.9 98 22 147/100 94 10/19/16 01:28 Room Air 10/18/16 23:03 36.4 92 18 146/90 95 Room Air 10/18/16 19:33 Room Air 10/18/16 19:13 36.7 109 20 130/84 95 Room Air 10/18/16 16:00 Room Air Physical Exam General Appearance: WD/WN, no apparent distress, + pertinent finding (flat affect/mask-like face) Eyes: sclerae normal ENT: hearing grossly normal Neck: supple, no JVD, trachea midline Respiratory/Chest: lungs clear, no respiratory distress, no accessory muscle use, + decreased breath sounds Cardiovascular: regular rate, rhythm, no gallop, no murmur Abdomen: normal bowel sounds, non tender, soft Extremities: no pedal edema, no calf tenderness Neurologic/Psychiatric: alert Skin: normal color, warm/dry Laboratory Results Last 24 Hours Test 10/19/16 05:17 White Blood Count 10.23 K/uL Red Blood Count 5.31 M/uL Hemoglobin 14.9 g/dL Hematocrit 45.4 % Mean Corpuscular Volume 85.5 fL Mean Corpuscular Hemoglobin 28.1 pg Mean Corpuscular Hemoglobin Concent 32.8 g/dl RDW Standard Deviation 47.3 fL RDW Coefficient of Variation 15.4 % Platelet Count 337 K/uL Mean Platelet Volume 9.4 fL Sodium Level 142 mmol/L Potassium Level 3.5 mmol/L Chloride Level 105 mmol/L Carbon Dioxide Level 31 mmol/L Anion Gap 6.0 mmol/L Blood Urea Nitrogen 16 mg/dl Creatinine 0.84 mg/dl Est Creatinine Clear Calc Drug Dose 63.2 ml/min Estimated GFR () 83.4 Estimated GFR (Non- 71.9 BUN/Creatinine Ratio 19.1 Random Glucose 97 mg/dl Calcium Level 8.2 mg/dl Thyroid Stimulating Hormone (TSH) 10.800 uIu/ml Assessment and Plan Ms. Abernathy is a 66 y/o female with PMHx of CVA with L Residual Deficits ( February 2016), HLD, HTN, Chronic PVCs, COPD?, and Bipolar Disorder who presents to the ED c/o generalized weakness and cold-like symptoms x 2 days. CXR reveals patchy airspace consolidation of L lung base and small pleural effusion SIRS from Community Acquired Pneumonia: IMPROVED - Completed Levaquin 750 mg po daily - DAY #11/27 - Xopenex and Atrovent inhalers H/O Frequent PVCs/HTN: IMPROVED - Increased Metoprolol 25 mg daily on 10/18 to 50 mg daily - Increased Lisinopril 5 mg daily on 10/18 to 10 mg daily COPD/Allergies: Patient reports COPD but then stated its mostly allergies - Singulair 10 mg daily H/O CVA with L Residual Deficits: - Per patient and she has not taken Lipitor x "months"-- Initially on 80 mg daily but reduced to 20 mg due to myalgias and has since stopped taking it - Plavix 75 mg daily - Flexeril 5 mg daily PRN and Oxycodone 5 mg Q6H PRN Hypothyroidism: - TSH at 10.8 - Increase Synthroid 100 mcg daily to 112 mcg daily and will need recheck in 6 weeks Bipolar Disorder: - Cymbalta 60 mg daily and 30 mg HS - Seroquel XR 400 mg daily and Rexulti 1 mg daily - Clonazepam 0.5 mg HS - on allergy list however patient and confirm daily use - Trazadone 150 mg HS Constipation: - Colace 100 mg BID PRN DVT Prophylaxis: Lovenox 40 mg SC daily Code Status: FULL RESUSCITATION Disposition: - PT/OT evaluations - lives at home with and utilizes a cane; no recent falls; only has approx 3 steps to enter home -- Recommendations for inpatient rehab - [facility] warranted PASSR and completed - [facility] referral placed for SNF - medically suitable for D/C once arrangements made with outpatient follow-up in 6 weeks for TSH check Continued [facility] stay due to: ambulation difficulties [facility]charge planning[facility] facility
[2016-10-19] MEDS: ENOXAPARIN 40 MG/0.4 ML SYR SC SCH (15:44)
[2016-10-19] MEDS: CLONAZEPAM 0.5 MG TAB PO SCH (21:04)
[2016-10-19] MEDS: DULOXETINE (CYMBALTA) 30 MG CAP PO SCH (21:04)
[2016-10-19] MEDS: TRAZODONE HCL 100 MG TAB PO SCH (21:05)
[2016-10-19] MEDS: RANITIDINE HCL 150 MG TAB PO SCH (21:05)
[2016-10-19] MEDS: MONTELUKAST SOD 10 MG TAB PO SCH (21:06)
[2016-10-20] VITALS (7 sets, daily range): BP systolic 97–131; BP diastolic 64–81; PULSE 64–99; TEMP 36.5–37.1; O2SAT 93–96
[2016-10-20] MEDS: LEVOTHYROXINE 112 MCG TAB PO SCH (05:57)
[2016-10-20] MEDS: IPRATROPIUM BROMIDE HFA INHALER INH SCH ×4 (05:57→23:33)
[2016-10-20] MEDS: LEValbuterol HFA 15GM INHALER INH SCH ×4 (05:58→23:34)
[2016-10-20] MEDS: METOPROLOL SUCC 50MG EXT REL TAB PO SCH (07:54)
[2016-10-20] MEDS: LISINOPRIL 10 MG TAB PO SCH (07:55)
[2016-10-20] MEDS: BREXPIPRAZOLE 1 MG TAB PO SCH (07:55)
[2016-10-20] MEDS: DOCUSATE SODIUM 100 MG CAP PO SCH ×2 (07:55→20:36)
[2016-10-20] MEDS: DULOXETINE HCL 60 MG CAP PO SCH (07:55)
[2016-10-20] MEDS: CLOPIDOGREL BISULFATE 75 MG TAB PO SCH (07:55)
[2016-10-20] MEDS: QUETIAPINE FUMARATE 200 MG TABCR PO SCH (07:55)
[2016-10-20] MEDS: ENOXAPARIN 40 MG/0.4 ML SYR SC SCH (16:06)
--- NOTE | 2016-10-20 16:13 | Progress Note ---
Subjective Date of Service: October 20, 2016. Subjective Pt evaluation today including: conversation w/ patient, physical exam, review of inpatient medication list Pain: no pain PO Intake: adequate Voiding: no voiding problems patient needs evaluated by beatrcie prior to going to SNF, process started today hopeful for d/c by tomorrow but may be difficult no acute medical issues, she is stable Problem List Medical Problems: (1) Generalized weakness Status: Acute (2) Hypoxia Status: Acute (3) Pleural effusion on left Status: Acute (4) Pneumonia Status: Acute Review of Systems All Other Systems: Reviewed and Negative Medications Current Inpatient Medications Medications (Trade) Dose Ordered Sig/Natali Route Start Time Stop Time Status Last Admin Dose Admin Enoxaparin Sodium (Lovenox Inj) 40 mg Q24H SC 10/13/16 16:00 11/12/16 15:59 10/20/16 16:06 40 MG Acetaminophen (Tylenol Tab) 650 mg Q4H PRN PO 10/13/16 08:15 11/12/16 08:14 Al Hydrox/Mg Hydrox/Simethicone (Maalox Max Susp) 15 ml Q4H PRN PO 10/13/16 08:15 11/12/16 08:14 Magnesium Hydroxide (Milk Of Magnesia Susp) 30 ml Q12H PRN PO 10/13/16 08:15 11/12/16 08:14 Ondansetron HCl (Zofran Inj) 4 mg Q6H PRN IV 10/13/16 08:15 11/12/16 08:14 Polyethylene (Miralax Powder Packet) 17 gm DAILY PRN PO 10/13/16 08:15 11/12/16 08:14 Clopidogrel Bisulfate (plAVix TAB) 75 mg QAM PO 10/14/16 09:00 11/13/16 08:59 10/20/16 07:55 75 MG Cyclobenzaprine HCl (Flexeril Tab) 5 mg DAILY PRN PO 10/13/16 08:15 11/12/16 08:14 Duloxetine HCl (Cymbalta Cap) 30 mg HS PO 10/13/16 21:00 11/12/16 20:59 10/19/16 21:04 30 MG Duloxetine HCl (Cymbalta Cap) 60 mg QAM PO 10/14/16 09:00 11/13/16 08:59 10/20/16 07:55 60 MG Montelukast Sodium (Singulair Tab) 10 mg HS PO 10/13/16 21:00 11/12/16 20:59 10/19/16 21:06 10 MG Oxycodone HCl (Roxicodone Immediate Rel Tab) 5 mg Q6H PRN PO 10/13/16 08:15 10/27/16 08:14 Quetiapine Fumarate (seroQUEL XR TAB) 400 mg DAILY PO 10/14/16 09:00 11/13/16 08:59 10/20/16 07:55 400 MG Ranitidine HCl (zANTac TAB) 150 mg HS PO 10/13/16 21:00 11/12/16 20:59 10/19/16 21:05 150 MG Trazodone HCl (Desyrel Tab) 150 mg HS PO 10/13/16 21:00 11/12/16 20:59 10/19/16 21:05 150 MG Valacyclovir HCl (Valtrex Tab) 500 mg QAM PO 10/14/16 09:00 10/24/16 08:59 10/20/16 07:55 500 MG Clonazepam (Klonopin Tab) 0.5 mg HS PO 10/13/16 21:00 11/12/16 20:59 10/19/16 21:04 0.5 MG Brexpiprazole (Rexulti) 1 mg QAM PO 10/17/16 09:00 11/16/16 08:59 10/20/16 07:55 1 MG Ipratropium [place] (Atrovent Hfa Inhaler) 2 puffs Q6 INH 10/18/16 00:00 11/17/16 00:00 10/20/16 12:42 2 PUFFS Levalbuterol (Xopenex Hfa Inhaler) 2 puffs Q6 INH 10/18/16 00:00 11/17/16 00:00 10/20/16 12:43 2 PUFFS Lisinopril (Zestril Tab) 10 mg QAM PO 10/18/16 09:00 11/17/16 08:59 10/20/16 07:55 10 MG Docusate Sodium (coLACE CAP) 100 mg BID PO 10/18/16 21:00 11/17/16 20:59 10/20/16 07:55 100 MG Metoprolol Succinate (Toprol Xl Tab) 50 mg DAILY PO 10/19/16 09:00 11/18/16 08:59 10/20/16 07:54 50 MG Levothyroxine Sodium (Synthroid Tab) 112 mcg DAILYBB PO 10/20/16 06:30 11/19/16 06:29 10/20/16 05:57 112 MCG Objective Vital Signs Date Time Temp Pulse Resp B/P Pulse Ox O2 Delivery O2 Flow Rate FiO2 10/20/16 15:35 36.8 78 16 97/64 94 Room Air 10/20/16 11:33 37.1 90 20 101/71 95 Room Air 10/20/16 08:09 Room Air 10/20/16 07:54 36.9 99 18 126/69 96 Room Air 10/20/16 04:12 36.5 64 16 131/80 94 Room Air 10/20/16 00:00 Room Air 10/19/16 23:56 36.9 83 20 131/81 94 Room Air 10/19/16 19:25 36.3 92 18 126/81 94 Room Air Physical Exam General Appearance: WD/WN, no apparent distress Neck: supple, no adenopathy, no JVD Respiratory/Chest: chest non-tender, lungs clear, normal breath sounds, no respiratory distress, no accessory muscle use Cardiovascular: regular rate, rhythm, no edema, no gallop, no JVD, no murmur Abdomen: normal bowel sounds, non tender, soft, no organomegaly Extremities: normal range of motion, non-tender, normal inspection, no pedal edema, no calf tenderness 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 Abernathy is a 66 y/o female with PMHx of CVA with L Residual Deficits ( February 2016), HLD, HTN, Chronic PVCs, COPD?, and Bipolar Disorder who presents to the ED c/o generalized weakness and cold-like symptoms x 2 days. CXR reveals patchy airspace consolidation of L lung base and small pleural effusion SIRS from Community Acquired Pneumonia: resolved - Completed Levaquin 750 mg po daily - DAY #11/27 - Xopenex and Atrovent inhalers - afebrile, no cough, no dyspnea, normal WBC H/O Frequent PVCs/HTN: IMPROVED - Increased Metoprolol 25 mg daily on 10/18 to 50 mg daily - Increased Lisinopril 5 mg daily on 10/18 to 10 mg daily - continue these doses on discharge COPD/Allergies: Patient reports COPD but then stated its mostly allergies - Singulair 10 mg daily H/O CVA with L Residual Deficits: - Per patient and she has not taken Lipitor x "months"-- Initially on 80 mg daily but reduced to 20 mg due to myalgias and has since stopped taking it - Plavix 75 mg daily - Flexeril 5 mg daily PRN and Oxycodone 5 mg Q6H PRN Hypothyroidism: - TSH at 10.8 - Increase Synthroid 100 mcg daily to 112 mcg daily and will need recheck in 6 weeks Bipolar Disorder: - Cymbalta 60 mg daily and 30 mg HS - Seroquel XR 400 mg daily and Rexulti 1 mg daily - Clonazepam 0.5 mg HS - on allergy list however patient and confirm daily use - Trazadone 150 mg HS Constipation: - Colace 100 mg BID PRN DVT Prophylaxis: Lovenox 40 mg SC daily Code Status: FULL RESUSCITATION Disposition: - PT/OT evaluations - lives at home with and utilizes a cane; no recent falls; only has approx 3 steps to enter home -- Recommendations for inpatient rehab - [facility] warranted PASSR and completed - [facility] referral placed for SNF - medically suitable for D/C once arrangements made with outpatient follow-up in 6 weeks for TSH check hopeful for d/c tomorrow Continued [facility] stay due to: ambulation difficulties Discharge planning: shelter facility
[2016-10-20] MEDS: CLONAZEPAM 0.5 MG TAB PO SCH (20:33)
[2016-10-20] MEDS: TRAZODONE HCL 100 MG TAB PO SCH (20:34)
[2016-10-20] MEDS: DULOXETINE (CYMBALTA) 30 MG CAP PO SCH (20:35)
[2016-10-20] MEDS: RANITIDINE HCL 150 MG TAB PO SCH (20:36)
[2016-10-20] MEDS: MONTELUKAST SOD 10 MG TAB PO SCH (20:36)
[2016-10-21] VITALS (10 sets, daily range): BP systolic 92–136; BP diastolic 65–87; PULSE 64–105; TEMP 36.7–38.1; O2SAT 92–95
[2016-10-21] MEDS: IPRATROPIUM BROMIDE HFA INHALER INH SCH ×4 (06:00→23:45)
[2016-10-21] MEDS: LEVOTHYROXINE 112 MCG TAB PO SCH (06:01)
[2016-10-21] MEDS: LEValbuterol HFA 15GM INHALER INH SCH ×4 (06:01→23:45)
[2016-10-21] MEDS: DOCUSATE SODIUM 100 MG CAP PO SCH ×2 (08:06→20:42)
[2016-10-21] MEDS: METOPROLOL SUCC 50MG EXT REL TAB PO SCH (08:06)
[2016-10-21] MEDS: DULOXETINE HCL 60 MG CAP PO SCH (08:07)
[2016-10-21] MEDS: CLOPIDOGREL BISULFATE 75 MG TAB PO SCH (08:07)
[2016-10-21] MEDS: QUETIAPINE FUMARATE 200 MG TABCR PO SCH (08:07)
[2016-10-21] MEDS: LISINOPRIL 10 MG TAB PO SCH (08:07)
[2016-10-21] MEDS: BREXPIPRAZOLE 1 MG TAB PO SCH (08:08)
--- NOTE | 2016-10-21 10:05 | Hospitalist Progress Note ---
Hospitalist Progress Note Date of Service October 21, 2016. Subjective Pt evaluation today including: conversation w/ patient, physical exam, chart review, lab review, review of studies, review of inpatient medication list Patient seen and evaluated. No acute events overnight. Awaiting target review for possible SNF prior to returning home. Verbalizes no complaints at this time. Medically optimal for D/C when arrangements made. Constitutional: No chills, No fever Respiratory: No cough, No shortness of breath Cardiovascular: No chest pain Abdomen: No nausea, No pain, No vomiting Musculoskeletal: No calf pain, No swelling Female : No dysuria Neurologic: + problem reported (Chronic L residual deficits from CVA at baseline) Psychiatric: No anxiety, No depression symptoms Medications Current Inpatient Medications Medications (Trade) Dose Ordered Sig/Natali Route Start Time Stop Time Status Last Admin Dose Admin Enoxaparin Sodium (Lovenox Inj) 40 mg Q24H SC 10/13/16 16:00 11/12/16 15:59 10/20/16 16:06 40 MG Acetaminophen (Tylenol Tab) 650 mg Q4H PRN PO 10/13/16 08:15 11/12/16 08:14 Al Hydrox/Mg Hydrox/Simethicone (Maalox Max Susp) 15 ml Q4H PRN PO 10/13/16 08:15 11/12/16 08:14 Magnesium Hydroxide (Milk Of Magnesia Susp) 30 ml Q12H PRN PO 10/13/16 08:15 11/12/16 08:14 Ondansetron HCl (Zofran Inj) 4 mg Q6H PRN IV 10/13/16 08:15 11/12/16 08:14 Polyethylene (Miralax Powder Packet) 17 gm DAILY PRN PO 10/13/16 08:15 11/12/16 08:14 Clopidogrel Bisulfate (plAVix TAB) 75 mg QAM PO 10/14/16 09:00 11/13/16 08:59 10/21/16 08:07 75 MG Cyclobenzaprine HCl (Flexeril Tab) 5 mg DAILY PRN PO 10/13/16 08:15 11/12/16 08:14 Duloxetine HCl (Cymbalta Cap) 30 mg HS PO 10/13/16 21:00 11/12/16 20:59 10/20/16 20:35 30 MG Duloxetine HCl (Cymbalta Cap) 60 mg QAM PO 10/14/16 09:00 11/13/16 08:59 10/21/16 08:07 60 MG Montelukast Sodium (Singulair Tab) 10 mg HS PO 10/13/16 21:00 11/12/16 20:59 10/20/16 20:36 10 MG Oxycodone HCl (Roxicodone Immediate Rel Tab) 5 mg Q6H PRN PO 10/13/16 08:15 10/27/16 08:14 Quetiapine Fumarate (seroQUEL XR TAB) 400 mg DAILY PO 10/14/16 09:00 11/13/16 08:59 10/21/16 08:07 400 MG Ranitidine HCl (zANTac TAB) 150 mg HS PO 10/13/16 21:00 11/12/16 20:59 10/20/16 20:36 150 MG Trazodone HCl (Desyrel Tab) 150 mg HS PO 10/13/16 21:00 11/12/16 20:59 10/20/16 20:34 150 MG Valacyclovir HCl (Valtrex Tab) 500 mg QAM PO 10/14/16 09:00 10/24/16 08:59 10/21/16 08:07 500 MG Clonazepam (Klonopin Tab) 0.5 mg HS PO 10/13/16 21:00 11/12/16 20:59 10/20/16 20:33 0.5 MG Brexpiprazole (Rexulti) 1 mg QAM PO 10/17/16 09:00 11/16/16 08:59 10/21/16 08:08 1 MG Ipratropium [place] (Atrovent Hfa Inhaler) 2 puffs Q6 INH 10/18/16 00:00 11/17/16 00:00 10/21/16 06:00 2 PUFFS Levalbuterol (Xopenex Hfa Inhaler) 2 puffs Q6 INH 10/18/16 00:00 11/17/16 00:00 10/21/16 06:01 2 PUFFS Lisinopril (Zestril Tab) 10 mg QAM PO 10/18/16 09:00 11/17/16 08:59 10/21/16 08:07 10 MG Docusate Sodium (coLACE CAP) 100 mg BID PO 10/18/16 21:00 11/17/16 20:59 10/21/16 08:06 100 MG Metoprolol Succinate (Toprol Xl Tab) 50 mg DAILY PO 10/19/16 09:00 11/18/16 08:59 10/21/16 08:06 50 MG Levothyroxine Sodium (Synthroid Tab) 112 mcg DAILYBB PO 10/20/16 06:30 11/19/16 06:29 10/21/16 06:01 112 MCG Objective Vital Signs Date Time Temp Pulse Resp B/P Pulse Ox O2 Delivery O2 Flow Rate FiO2 10/21/16 08:00 Room Air 10/21/16 07:16 37.5 64 20 136/87 92 Room Air 10/21/16 04:30 36.8 10/21/16 04:10 37.8 87 20 128/84 94 Room Air 10/21/16 04:00 36.8 10/21/16 04:00 36.8 10/21/16 00:00 Room Air 10/20/16 23:37 37.1 84 18 118/81 93 Room Air 10/20/16 23:32 37.1 72 18 129/81 95 Room Air 10/20/16 16:00 94 Room Air 10/20/16 15:35 36.8 78 16 97/64 94 Room Air 10/20/16 11:33 37.1 90 20 101/71 95 Room Air Physical Exam General Appearance: WD/WN, no apparent distress, + pertinent finding (flat affect/mask-like face) Eyes: sclerae normal ENT: hearing grossly normal Neck: supple, no JVD, trachea midline Respiratory/Chest: lungs clear, no respiratory distress, no accessory muscle use, + decreased breath sounds (takes short shallow breaths) Cardiovascular: regular rate, rhythm, no gallop, no murmur Abdomen: normal bowel sounds, non tender, soft Extremities: no pedal edema, no calf tenderness Neurologic/Psychiatric: alert, oriented x 3 Skin: normal color, warm/dry Assessment and Plan Ms. Abernathy is a 66 y/o female with PMHx of CVA with L Residual Deficits ( February 2016), HLD, HTN, Chronic PVCs, COPD?, and Bipolar Disorder who presents to the ED c/o generalized weakness and cold-like symptoms x 2 days. CXR reveals patchy airspace consolidation of L lung base and small pleural effusion SIRS from Community Acquired Pneumonia: RESOLVED - Completed Levaquin 750 mg po daily - DAY #7 - Xopenex and Atrovent inhalers H/O Frequent PVCs/HTN: IMPROVED - Increased Metoprolol 25 mg daily on 10/18 to 50 mg daily - Increased Lisinopril 5 mg daily on 10/18 to 10 mg daily - Plan to continue increased dosing at D/C COPD/Allergies: Patient reports COPD but then stated its mostly allergies - Singulair 10 mg daily H/O CVA with L Residual Deficits: - Per patient and she has not taken Lipitor x "months"-- Initially on 80 mg daily but reduced to 20 mg due to myalgias and has since stopped taking it - Plavix 75 mg daily - Flexeril 5 mg daily PRN and Oxycodone 5 mg Q6H PRN Hypothyroidism: TSH 10.8 - Increase Synthroid 100 mcg daily to 112 mcg daily and will need recheck in 6 weeks Bipolar Disorder: - Cymbalta 60 mg daily and 30 mg HS - Seroquel XR 400 mg daily and Rexulti 1 mg daily - Clonazepam 0.5 mg HS - on allergy list however patient and confirm daily use - Trazadone 150 mg HS Constipation: - Colace 100 mg BID PRN DVT Prophylaxis: Lovenox 40 mg SC daily Code Status: FULL RESUSCITATION Disposition: - PT/OT evaluations - lives at home with and utilizes a cane; no recent falls; only has approx 3 steps to enter home -- Recommendations for inpatient rehab - [facility] warranted PASSR and completed - [facility] referral placed for SNF - medically suitable for D/C once arrangements made with outpatient follow-up in 6 weeks for TSH check -- [facility] involved Continued [facility] stay due to: other (Pending SNF arrangements) Discharge planning: intermediate facility
[2016-10-21] MEDS: ENOXAPARIN 40 MG/0.4 ML SYR SC SCH (16:00)
[2016-10-21] MEDS: CLONAZEPAM 0.5 MG TAB PO SCH (20:41)
[2016-10-21] MEDS: RANITIDINE HCL 150 MG TAB PO SCH (20:42)
[2016-10-21] MEDS: MONTELUKAST SOD 10 MG TAB PO SCH (20:42)
[2016-10-21] MEDS: TRAZODONE HCL 100 MG TAB PO SCH (20:42)
[2016-10-21] MEDS: DULOXETINE (CYMBALTA) 30 MG CAP PO SCH (20:43)
[2016-10-21] MEDS: MAGNESIUM HYDROXIDE SUSP 30 ML UDC PO PRN (20:49)
[2016-10-22] VITALS (7 sets, daily range): BP systolic 98–134; BP diastolic 60–75; PULSE 66–100; TEMP 36.8–37; O2SAT 93–96
[2016-10-22] MEDS: IPRATROPIUM BROMIDE HFA INHALER INH SCH ×3 (05:51→17:45)
[2016-10-22] MEDS: LEValbuterol HFA 15GM INHALER INH SCH ×3 (05:51→17:47)
[2016-10-22] MEDS: LEVOTHYROXINE 112 MCG TAB PO SCH (05:52)
[2016-10-22] MEDS: DOCUSATE SODIUM 100 MG CAP PO SCH ×2 (07:41→20:39)
[2016-10-22] MEDS ORDERED: LSN10 PO (07:42)
[2016-10-22] MEDS: DULOXETINE HCL 60 MG CAP PO SCH (07:42)
[2016-10-22] MEDS: QUETIAPINE FUMARATE 200 MG TABCR PO SCH (07:42)
[2016-10-22] MEDS: METOPROLOL SUCC 50MG EXT REL TAB PO SCH (07:42)
[2016-10-22] MEDS: LISINOPRIL 10 MG TAB PO SCH (07:42)
[2016-10-22] MEDS: CLOPIDOGREL BISULFATE 75 MG TAB PO SCH (07:42)
[2016-10-22] MEDS ORDERED: TPRSR50 PO (07:42)
[2016-10-22] MEDS ORDERED: SYN112 PO (07:42)
[2016-10-22] MEDS ORDERED: RXC5 PO (07:42)
[2016-10-22] MEDS: BREXPIPRAZOLE 1 MG TAB PO SCH (07:43)
--- NOTE | 2016-10-22 08:55 | Discharge Instructions ---
Discharge Instructions Date of Service Oct 22, 2016. Admission Reason for Admission: Pneumonia Discharge Discharge Diagnosis / Problem: Pneumonia Discharge Goals Goal(s): Decrease discomfort, Improve function, Increase independence Activity Recommendations Activity Level: Assistance Required Therapies: Physical Therapy, Occupational Therapy . Additional Information Patient informed of condition: Yes Advance Directives: Yes DNR: No Level of Care: Skilled Communicable Disease: No Prognosis: Improving Instructions / Follow-Up Instructions / Follow-Up Ms. Abernathy is a 66 y/o female with PMHx of CVA with L Residual Deficits ( February 2016), HLD, HTN, Chronic PVCs, COPD?, and Bipolar Disorder who presents to the ED c/o generalized weakness and cold-like symptoms x 2 days. CXR reveals patchy airspace consolidation of L lung base and small pleural effusion SIRS from Community Acquired Pneumonia: RESOLVED - Completed Levaquin 750 mg po daily - DAY #11/27 - no further antibiotic therapy needed at this time H/O Frequent PVCs/HTN: IMPROVED - Increased Metoprolol 25 mg daily on 10/18 to 50 mg daily and will continue - Rx provided - Lisinopril 10 mg daily added - Rx provided COPD/Allergies: Patient reports COPD but then stated its mostly allergies - Singulair 10 mg daily H/O CVA with L Residual Deficits: - Per patient and she has not taken Lipitor x "months"-- Initially on 80 mg daily but reduced to 20 mg due to myalgias and has since stopped taking it - Plavix 75 mg daily - Flexeril 5 mg daily PRN and Oxycodone 5 mg Q6H PRN Hypothyroidism: TSH 10.8 - Increase Synthroid 100 mcg daily to 112 mcg daily and will need TSH recheck in 6 weeks Bipolar Disorder: - Cymbalta 60 mg daily and 30 mg HS - Seroquel XR 400 mg daily and Rexulti 1 mg daily - Clonazepam 0.5 mg HS - on allergy list however patient and confirm daily use - Trazadone 150 mg HS Constipation: - Colace 100 mg BID PRN Code Status: FULL RESUSCITATION Disposition: - [facility] involved in care Current Hospital Diet Patient's current hospital diet: Regular Diet Discharge Diet Recommended Diet: Regular Diet Pending Studies Studies pending at discharge: no Physician Orders On Transfer POLST Discussion: Not Applicable Medical Emergencies . Who to Call and When: Medical Emergencies: If at any time you feel your situation is an emergency, please call 911 immediately. . Non-Emergent Contact Non-Emergency issues call your: Primary Care Provider Call Non-Emergent contact if: you have a fever, your pain is concerning you, you have any medication questions . . "Provider Documentation" section prepared by Audrey Miles. . Core Measure Problem Core Measures: None [place] Drug Monitoring Program Search Results: patient reviewed within database, no issues identified
--- NOTE | 2016-10-22 15:22 | Hospitalist Progress Note ---
Hospitalist Progress Note Date of Service Oct 22, 2016. Subjective Pt evaluation today including: conversation w/ patient, physical exam, chart review, review of inpatient medication list Patient seen and evaluated. No acute events overnight. Has intermittent low grade fevers but intermittent and no worsening symptoms. Cough continues to be resolved. Verbalizes no new complaints. Plan for D/C to SNF tomorrow Constitutional: No fever, No chills Respiratory: No cough, No shortness of breath Cardiovascular: No chest pain Abdomen: No pain, No nausea, No vomiting, No diarrhea, No constipation Musculoskeletal: No swelling, No calf pain Female : No dysuria Medications Current Inpatient Medications Medications (Trade) Dose Ordered Sig/Natali Route Start Time Stop Time Status Last Admin Dose Admin Enoxaparin Sodium (Lovenox Inj) 40 mg Q24H SC 10/13/16 16:00 11/12/16 15:59 10/20/16 16:06 40 MG Acetaminophen (Tylenol Tab) 650 mg Q4H PRN PO 10/13/16 08:15 11/12/16 08:14 10/21/16 20:41 650 MG Al Hydrox/Mg Hydrox/Simethicone (Maalox Max Susp) 15 ml Q4H PRN PO 10/13/16 08:15 11/12/16 08:14 Magnesium Hydroxide (Milk Of Magnesia Susp) 30 ml Q12H PRN PO 10/13/16 08:15 11/12/16 08:14 10/21/16 20:49 30 ML Ondansetron HCl (Zofran Inj) 4 mg Q6H PRN IV 10/13/16 08:15 11/12/16 08:14 Polyethylene (Miralax Powder Packet) 17 gm DAILY PRN PO 10/13/16 08:15 11/12/16 08:14 Clopidogrel Bisulfate (plAVix TAB) 75 mg QAM PO 10/14/16 09:00 11/13/16 08:59 10/22/16 07:42 75 MG Cyclobenzaprine HCl (Flexeril Tab) 5 mg DAILY PRN PO 10/13/16 08:15 11/12/16 08:14 Duloxetine HCl (Cymbalta Cap) 30 mg HS PO 10/13/16 21:00 11/12/16 20:59 10/21/16 20:43 30 MG Duloxetine HCl (Cymbalta Cap) 60 mg QAM PO 10/14/16 09:00 11/13/16 08:59 10/22/16 07:42 60 MG Montelukast Sodium (Singulair Tab) 10 mg HS PO 10/13/16 21:00 11/12/16 20:59 10/21/16 20:42 10 MG Oxycodone HCl (Roxicodone Immediate Rel Tab) 5 mg Q6H PRN PO 10/13/16 08:15 10/27/16 08:14 Quetiapine Fumarate (seroQUEL XR TAB) 400 mg DAILY PO 10/14/16 09:00 11/13/16 08:59 10/22/16 07:42 400 MG Ranitidine HCl (zANTac TAB) 150 mg HS PO 10/13/16 21:00 11/12/16 20:59 10/21/16 20:42 150 MG Trazodone HCl (Desyrel Tab) 150 mg HS PO 10/13/16 21:00 11/12/16 20:59 10/21/16 20:42 150 MG Valacyclovir HCl (Valtrex Tab) 500 mg QAM PO 10/14/16 09:00 10/24/16 08:59 10/22/16 07:42 500 MG Clonazepam (Klonopin Tab) 0.5 mg HS PO 10/13/16 21:00 11/12/16 20:59 10/21/16 20:41 0.5 MG Brexpiprazole (Rexulti) 1 mg QAM PO 10/17/16 09:00 11/16/16 08:59 10/22/16 07:43 1 MG Ipratropium [place] (Atrovent Hfa Inhaler) 2 puffs Q6 INH 10/18/16 00:00 11/17/16 00:00 10/22/16 05:51 2 PUFFS Levalbuterol (Xopenex Hfa Inhaler) 2 puffs Q6 INH 10/18/16 00:00 11/17/16 00:00 10/22/16 05:51 2 PUFFS Lisinopril (Zestril Tab) 10 mg QAM PO 10/18/16 09:00 11/17/16 08:59 10/22/16 07:42 10 MG Docusate Sodium (coLACE CAP) 100 mg BID PO 10/18/16 21:00 11/17/16 20:59 10/22/16 07:41 100 MG Metoprolol Succinate (Toprol Xl Tab) 50 mg DAILY PO 10/19/16 09:00 11/18/16 08:59 10/21/16 08:06 50 MG Levothyroxine Sodium (Synthroid Tab) 112 mcg DAILYBB PO 10/20/16 06:30 11/19/16 06:29 10/22/16 05:52 112 MCG Objective Vital Signs Date Time Temp Pulse Resp B/P (MAP) Pulse Ox O2 Delivery O2 Flow Rate FiO2 10/22/16 15:07 36.9 100 18 134/73 (93) 95 Room Air 10/22/16 11:45 36.9 87 18 106/72 (83) 94 Room Air 10/22/16 10:42 36.9 87 18 93 Room Air 10/22/16 08:54 36.9 87 18 100/71 (81) 93 Room Air 10/22/16 08:00 Room Air 10/22/16 00:21 37.0 66 20 98/60 (73) 94 Room Air 10/22/16 00:00 Room Air 10/21/16 22:28 36.7 10/21/16 19:57 38.1 95 20 114/76 (89) 92 Room Air 10/21/16 16:00 95 Room Air Physical Exam General Appearance: WD/WN, no apparent distress, + pertinent finding (flat affect) Eyes: sclerae normal ENT: hearing grossly normal Neck: supple, no JVD, trachea midline Respiratory/Chest: lungs clear, normal breath sounds, no respiratory distress, no accessory muscle use Cardiovascular: regular rate, rhythm, no gallop, no murmur Abdomen: normal bowel sounds, non tender, soft Extremities: no pedal edema, no calf tenderness Neurologic/Psychiatric: alert, oriented x 3 Skin: normal color, warm/dry Assessment and Plan Ms. Abernathy is a 66 y/o female with PMHx of CVA with L Residual Deficits ( February 2016), HLD, HTN, Chronic PVCs, COPD?, and Bipolar Disorder who presents to the ED c/o generalized weakness and cold-like symptoms x 2 days. CXR reveals patchy airspace consolidation of L lung base and small pleural effusion SIRS from Community Acquired Pneumonia: RESOLVED - Completed Levaquin 750 mg po daily - DAY #11/27 - Xopenex and Atrovent inhalers H/O Frequent PVCs/HTN: IMPROVED - Increased Metoprolol 25 mg daily on 10/18 to 50 mg daily - Increased Lisinopril 5 mg daily on 10/18 to 10 mg daily - Plan to continue increased dosing at D/C COPD/Allergies: Patient reports COPD but then stated its mostly allergies - Singulair 10 mg daily H/O CVA with L Residual Deficits: - Per patient and she has not taken Lipitor x "months"-- Initially on 80 mg daily but reduced to 20 mg due to myalgias and has since stopped taking it - Plavix 75 mg daily - Flexeril 5 mg daily PRN and Oxycodone 5 mg Q6H PRN Hypothyroidism: TSH 10.8 - Increase Synthroid 100 mcg daily to 112 mcg daily and will need recheck in 6 weeks Bipolar Disorder: - Cymbalta 60 mg daily and 30 mg HS - Seroquel XR 400 mg daily and Rexulti 1 mg daily - Clonazepam 0.5 mg HS - on allergy list however patient and confirm daily use - Trazadone 150 mg HS Constipation: - Colace 100 mg BID PRN DVT Prophylaxis: Lovenox 40 mg SC daily Code Status: FULL RESUSCITATION Disposition: - PT/OT evaluations - lives at home with and utilizes a cane; no recent falls; only has approx 3 steps to enter home -- Recommendations for inpatient rehab - Shannon banerjee warranted PASSR and completed - [facility] referral placed for SNF - medically suitable for D/C once arrangements made with outpatient follow-up in 6 weeks for TSH check -- OOA involved - No changes in plan - plan to D/C to [facility] tomorrow Continued [facility] stay due to: other (awaiting SNF arrangements) Discharge planning: longterm facility
[2016-10-22] MEDS: ENOXAPARIN 40 MG/0.4 ML SYR SC SCH (15:51)
[2016-10-22] MEDS: MAGNESIUM HYDROXIDE SUSP 30 ML UDC PO PRN (20:13)
[2016-10-22] MEDS: DULOXETINE (CYMBALTA) 30 MG CAP PO SCH (20:39)
[2016-10-22] MEDS: CLONAZEPAM 0.5 MG TAB PO SCH (20:40)
[2016-10-22] MEDS: TRAZODONE HCL 100 MG TAB PO SCH (20:40)
[2016-10-22] MEDS: RANITIDINE HCL 150 MG TAB PO SCH (20:40)
[2016-10-22] MEDS: MONTELUKAST SOD 10 MG TAB PO SCH (20:40)
[2016-10-23] MEDS: IPRATROPIUM BROMIDE HFA INHALER INH SCH ×3 (00:44→12:10)
[2016-10-23] MEDS: LEValbuterol HFA 15GM INHALER INH SCH ×3 (00:44→12:10)
[2016-10-23] MEDS: LEVOTHYROXINE 112 MCG TAB PO SCH (05:12)
[2016-10-23 06:51] VITALS: BP 103/68; PULSE 96; TEMP 36.7; O2SAT 94
[2016-10-23] MEDS ORDERED: LSN10 PO (07:03)
[2016-10-23] MEDS: CLOPIDOGREL BISULFATE 75 MG TAB PO SCH (07:53)
[2016-10-23] MEDS: DOCUSATE SODIUM 100 MG CAP PO SCH (07:53)
[2016-10-23] MEDS: QUETIAPINE FUMARATE 200 MG TABCR PO SCH (07:53)
[2016-10-23] MEDS: DULOXETINE HCL 60 MG CAP PO SCH (07:53)
[2016-10-23] MEDS: METOPROLOL SUCC 50MG EXT REL TAB PO SCH (07:54)
[2016-10-23] MEDS: LISINOPRIL 10 MG TAB PO SCH (07:54)
[2016-10-23] MEDS: BREXPIPRAZOLE 1 MG TAB PO SCH (07:54)
--- NOTE | 2016-10-23 10:33 | Discharge Summary ---
Discharge Summary Date of Service Oct 23, 2016. Discharge Summary Admission Date: October 13, 2016 at 08:31 Discharge Date: Oct 22, 2016 Discharge Disposition: [facility] facility Principal Diagnosis: Community Acquired Pneumonia Problems/Secondary Diagnoses: 1. Palpitations with Frequent PVCs 2. CVA (February 2016) 3. Bipolar Disorder 4. Hypothyroidism 5. HTN Procedures: 1. TWO VIEW CHEST FINDINGS: PA and lateral chest radiographs are compared to study dated 10/13/2016. The PA view is degraded by patient rotation. The cardiomediastinal silhouette is unremarkable. Chronic interstitial thickening is unchanged. There is unchanged appearance of left basilar airspace consolidation with a trace left pleural effusion. The right lung appears clear. There is no pneumothorax. The skeletal structures are osteopenic. The bony thorax appears intact. IMPRESSION: Findings of left lower lobe pneumonia with a small left pleural effusion have not significantly changed from 10/13/2016. Consultations: 1. PT/OT 2. Psychiatry Medication Reconciliation New Medications: Levothyroxine Sodium (Synthroid) 112 Mcg Tab 112 MCG PO DAILYBB for 30 Days, #30 TAB Lisinopril (Zestril) 10 Mg Tab 5 MG PO QAM for 30 Days, #15 TAB Metoprolol Succinate (Metoprolol Succinate ER) 50 Mg Tabcr 50 MG PO DAILY for 30 Days, #30 TABS Oxycodone HCl (Oxycodone HCl) 5 Mg Tab 5 MG PO Q6H PRN for Pain for 3 Days, #12 TAB Continued Medications: Atorvastatin (Lipitor) 20 Mg Tab 20 MG PO HS, TAB Brexpiprazole (Rexulti) 1 Mg Tab 1 MG PO QAM Clonazepam (Klonopin) 0.5 Mg Tab 0.5 MG PO HS, TAB Clopidogrel (Plavix) 75 Mg Tab 75 MG PO QAM, TAB Cyclobenzaprine Hcl (Flexeril) 5 Mg Tab 5 MG PO UD PRN for Muscle Spasms, TAB PRN Docusate Sodium (Docusate Sodium) 100 Mg Cap 100 MG PO BID PRN for Constipation Duloxetine Hcl (Cymbalta) 60 Mg Cap 60 MG PO QAM Duloxetine HCl (Cymbalta) 30 Mg Cap 30 MG PO HS, 2 Refills Lorazepam (Ativan) 0.5 Mg Tab 0.5 MG PO UD PRN for Anxiety, TAB Montelukast Sodium (Singulair) 10 Mg Tab 1 TAB PO HS for 90 Days, #90 TAB 1 Refill Quetiapine Fumarate Xr (Seroquel Xr) 200 Mg Tabcr 400 MG PO DAILY, TAB Ranitidine Hcl (Zantac) 150 Mg Tab 150 MG PO HS, TAB Trazodone Hcl (Trazodone) 100 Mg Tab 150 MG PO HS, TAB Valacyclovir (Valtrex) 500 Mg Tab 500 MG PO QAM, TAB Discontinued Medications: Levothyroxine Sodium (Synthroid) 100 Mcg Tab 1 TAB PO QAM for 30 Days, #30 TAB 5 Refills Metoprolol Succ (Toprol Xl) (Toprol-Xl) 25 Mg Tabcr 25 MG PO DAILY, #30 TAB Oxycodone Ir (Roxicodone Ir) 5 Mg Tab 5 MG PO UD PRN for Pain, TAB Discharge Exam Review of Systems: Constitutional: No fever, No chills Eyes: No worsening of vision ENT: No nasal symptoms, No sore throat, No trouble swallowing Respiratory: No cough, No wheezing, No shortness of breath Cardiovascular: No chest pain, No palpitations Abdomen: No pain, No nausea, No vomiting, No diarrhea, No constipation Musculoskeletal: No swelling, No calf pain Genitourinary - Female: No dysuria Neurologic: No numbness/tingling, No vertigo Psychiatric: No depression symptoms, No anxiety Hematologic / Lymphatic: No abnormal bleeding/bruising Physical Exam: General Appearance: WD/WN, no apparent distress, + pertinent finding (flat affect/mask-like face - did have minimal facial expression today with smiling) Eyes: sclerae normal ENT: hearing grossly normal Neck: supple, no JVD, trachea midline Respiratory/Chest: lungs clear (takes rapid shallow breaths), normal breath sounds, no respiratory distress, no accessory muscle use Cardiovascular: regular rate, rhythm, no gallop, no murmur Abdomen / GI: normal bowel sounds, non tender, soft Extremities: no calf tenderness, no pedal edema, + pertinent finding (L sided residual weakness from CVA) Neurologic/Psychiatric: alert, oriented x 3 Skin: normal color, warm/dry Hospital Course ADMISSION: Ms. Abernathy is a 66 y/o female with PMHx of CVA with L Residual Deficits (February 2016), HLD, HTN, Chronic PVCs, COPD?, and Bipolar Disorder who presents to the ED c/o generalized weakness and cold-like symptoms x 2 days. She reports her symptoms started as rhinorrhea and a sore throat that have resolved. Reports a productive cough of yellow sputum but is beginning to become less productive at this point. She gradually developed generalized weakness. She normally ambulates with a cane but her reports he has to help her move more over the past couple of days. She does have L residual deficits from her CVA. She reports that she has a baseline essential tremor but feels that it has increased over the passed couple of days. She feels like she was running a fever but did not document any fevers at home. Reports chronic urinary retention causing her to strain to urinate since her CVA. Also notes chronic constipation. She states she thinks she has a H/O COPD but then states she mostly just has allergies. She utilizes Singulair but does not have nebulizers or inhalers at home. She denies CP, SOB, N/V, abdominal pain, dysuria , diarrhea, melena/hematochezia. In the ED, she has a low-grade fever and mild tachycardia. Lactic acid is unremarkable and she is without leukocytosis. CXR reveals patchy airspace consolidation in L lung base and small L pleural effusion. EKG reveals sinus tachycardia with frequent PVCs without ischemic changes. She received IVF, Decadron, and Levaquin. She will be admitted to telemetry for SIRS from community-acquired pneumonia. HOSPITAL COURSE: Ms. Gonsales was admitted for community acquired pneumonia and completed a 7 day course of Levaquin. She had increased agitation and hallucinations early in the admission due to non-formulary Rexulti but improved after family brought this in. Initially, likely due to the mood disturbances she refused multiple medications. She was noted to have significant hypertension and was started on Lisinopril. She was continued on Lisinopril 5 mg daily. Due to tachycardia and chronic frequent PVCs, her metoprolol was increased to 50 mg daily. PT/OT evaluations performed which recommended inpatient rehab. Due to mental health conditions, she was evaluated by Office of A[facility] and approval given for acute inpatient rehab at a SNF. All home medications were continued as previously prescribed, other than mentioned. She is alert/oriented x 3, afebrile, without leukocytosis, and cough resolved. She is optimal for D/C to [facility] for SNF rehab. Total Time Spent: Greater than 30 minutes This includes examination of the patient, discharge planning, medication reconciliation, and communication with other providers. Discharge Instructions Please refer to the electronic Patient Visit Report (Discharge Instructions) for additional information. Additional Copies To Penelope Montano D.O.
== END 2016-10-23 14:23 | DRG 195 ==
LOC: ENRESERVTM → ENRESERVDT → EDBD 04:58 → C.EDB 04:59 → C.MED 08:31
PROVIDERS: ADMIT Hospitalist; ATTEND Internal Medicine
DX: J18.9 Pneumonia, unspecified organism (principal); I10 Essential (primary) hypertension; E78.00 Pure hypercholesterolemia, unspecified; R09.02 Hypoxemia; I69.80 Unspecified sequelae of other cerebrovascular disease; R33.8 Other retention of urine; F31.9 Bipolar disorder, unspecified; G25.0 Essential tremor; K59.00 Constipation, unspecified; E03.9 Hypothyroidism, unspecified